=== PATIENT | male | born 1980 | race Caucasian/White ===

== ENCOUNTER 2022-05-30 20:37 | Emergency (ER) | payer OTHER ==
[~2022-05-30] VITALS: Ht 165.1 cm; Wt 101.8 kg
[2022-05-30 22:21] VITALS: BP 135/72
[2022-05-30] MEDS ORDERED: AMOX500C2 PO (23:18)
[2022-05-30] MEDS ORDERED: IBUP-2070 PO (23:18)
[2022-05-30] MEDS ORDERED: AMOXICILLIN TRIHYDRATE 250 MG CAPSULE PO ONE (23:30)
[2022-05-30] MEDS ORDERED: TraMADol HCL 50 MG TABLET PO ONE (23:30)
== END 2022-05-30 23:32 | disposition home or self-care (01) ==
LOC: EMS 20:50
DX: T16.1XXA Foreign body in right ear, initial encounter (principal); F41.9 Anxiety disorder, unspecified; I10 Essential (primary) hypertension; M54.30 Sciatica, unspecified side; G62.9 Polyneuropathy, unspecified; F14.90 Cocaine use, unspecified, uncomplicated; F11.90 Opioid use, unspecified, uncomplicated; F19.90 Other psychoactive substance use, unspecified, uncomplicated; W22.8XXA Striking against or struck by other objects, initial encounter; Y93.89 Activity, other specified; Y92.89 Other specified places as the place of occurrence of the external cause; Y99.8 Other external cause status
CPT/HCPCS: 99283

== ENCOUNTER 2022-11-19 04:11 | Inpatient (IN) | payer OTHER ==
[~2022-11-19] VITALS: Ht 167.6 cm; Wt 90.2 kg
[~2022-11-19 04:11] MED LIST: AMOX500C2 PO; IBUP-1492 PO
[2022-11-19 08:05] LABS: BASOPHILS % (AUTO) 0.1 % (0.0-2.0); EOSINOPHILS % (AUTO) 0.5 % (1.0-6.0); HEMATOCRIT 35.6 % (41-53); HEMOGLOBIN 12.5 g/dL (13.5-17.5); LYMPHOCYTES # (AUTO) 1.4 K/uL (1.0-4.8); LYMPHOCYTES % (AUTO) 11.3 % (22.0-44.0); MEAN CORPUSCULAR HEMOGLOBIN 31.8 pg (26.0-34.0); MEAN CORPUSCULAR HGB CONC 35.2 G/dL (31.0-37.0); MEAN CORPUSCULAR VOLUME 90 fL (80-100); MONOCYTES % (AUTO) 7.9 % (2.0-9.0); NEUTROPHILS # (AUTO) 10.1 K/uL (1.8-7.7); NEUTROPHILS % (AUTO) 80.2 % (40.0-70.0); PLATELET COUNT (AUTO) 210 K/uL (150-450); RED BLOOD CELL COUNT(AUTO) 3.95 MIL/uL (4.50-5.90); RED CELL DISTRIBUTION WIDTH 13.1 % (11.5-14.5)
[2022-11-19 08:10] LABS: ANION GAP 6 mmol/L (8-16); CARBON DIOXIDE 29 mmol/L (22-29); CHLORIDE 98 mmol/L (98-107); CREATININE 0.78 mg/dL (0.60-1.30); GLOMERULAR FILTR. RATE CALC > 60 mL/min (>60); GLUCOSE,RANDOM 113 mg/dL (70-110); POTASSIUM 3.4 mmol/L (3.5-5.1); SODIUM SERUM 133 mmol/L (136-145); UREA NITROGEN, BLOOD 20 mg/dL (7-18)
[2022-11-19 08:18] LABS: B-TYPE NATRIURETIC PEPTIDE 6 pg/mL (0-100)
[2022-11-19 08:23] LABS: INR 1.1 (0.9-1.1); PROTHROMBIN TIME 11.5 SEC (9.4-11.6)
[2022-11-19 08:36] LABS: ALANINE AMINOTRANSFERASE 47 U/L (12-78); ALBUMIN 3.3 g/dL (3.4-5.0); ALKALINE PHOSPHATASE 62 U/L (46-116); ASPARTATE AMINOTRANSFERASE 36 U/L (15-37); BILIRUBIN,TOTAL 0.6 mg/dL (0.1-1.0); CREATINE KINASE, TOTAL ONLY 360 U/L (39-308); TOTAL PROTEIN, SERUM 7.4 g/dL (6.4-8.2)
[2022-11-19 09:28] LABS: COVID AG,FIA SOURCE NASAL SWAB
[2022-11-19] MEDS ORDERED: ONDANSETRON HCL 4 MG/2 ML VIAL IVP PRN (10:00)
[2022-11-19] MEDS: OxyCODONE HCL/ACETAMINOPHEN 5-325 MG TABLET PO PRN ×3 (10:20→23:47)
[2022-11-19 15:14] VITALS: BP 155/96
[2022-11-19 17:14] LABS: APPEARANCE,URINE CLEAR (CLEAR); BILIRUBIN,URINE NEGATIVE (NEGATIVE); GLUCOSE, URINE (UA) NEGATIVE (NEGATIVE); LEUKOCYTE ESTERASE ,URINE NEGATIVE (NEGATIVE); NITRATE,URINE NEGATIVE (NEGATIVE); OCCULT BLOOD,URINE NEGATIVE (NEGATIVE); PROTEIN,URINE 30-70 mg/dL (NEGATIVE); SPECIFIC GRAVITIY, URINE 1.032 (1.003-1.030); UROBILINOGEN,URINE <=1.0 mg/dL (<=1.0)
[2022-11-19] MEDS: HEPARIN SODIUM,PORCINE 5,000 UNITS/ML VIAL SQ SCH ×2 (18:23→23:43)
[2022-11-19 19:36] VITALS: BP 136/80
[2022-11-19] MEDS: DOCUSATE SODIUM 100 MG CAPSULE PO SCH (21:00)
[2022-11-20] VITALS (7 sets, daily range): BP systolic 113–175; BP diastolic 68–103
[2022-11-20] MEDS: ACETAMINOPHEN 325 MG TABLET PO PRN (05:06)
[2022-11-20] MEDS: OxyCODONE HCL/ACETAMINOPHEN 5-325 MG TABLET PO PRN ×3 (06:42→21:33)
[2022-11-20] MEDS: DOCUSATE SODIUM 100 MG CAPSULE PO SCH ×2 (08:33→21:05)
[2022-11-20] MEDS: FAMOTIDINE 20 MG TABLET PO SCH (08:33)
[2022-11-20] MEDS: HEPARIN SODIUM,PORCINE 5,000 UNITS/ML VIAL SQ SCH ×2 (08:33→17:47)
[2022-11-20 10:53] LABS: AMPHET/METH SCREEN,URINE POSITIVE (NEGATIVE); BARBITURATE SCREEN, URINE NEGATIVE (NEGATIVE); BENZODIAZEPINES SCREEN,URINE NEGATIVE (NEGATIVE); CANNABINOID SCREEN,URINE NEGATIVE (NEGATIVE); COCAINE SCREEN,URINE NEGATIVE (NEGATIVE); METHADONE SCREEN, URINE NEGATIVE (NEGATIVE); OPIATE SCREEN,URINE NEGATIVE (NEGATIVE); PHENCYCLIDINE SCREEN,URINE NEGATIVE (NEGATIVE)
[2022-11-20] MEDS: LORazepam 2 MG/ML VIAL IVP PRN ×2 (14:56→21:05)
[2022-11-20] MEDS ORDERED: LABETALOL HCL 5 MG/ML 20 ML VIAL IVP PRN (20:00)
[2022-11-20 20:46] LABS: GLUCOMETER DEV NAME(LOC) 5S.2C; GLUCOSE,POINT OF CARE 112 MG/DL (70-110)
[2022-11-20] MEDS ORDERED: DILTIAZEM HCL 30 MG TABLET PO ONE (22:00)
[2022-11-20] MEDS ORDERED: RINGERS SOLUTION,LACTATED 1,000 ML IV SCH (22:30)
[2022-11-20] MEDS ORDERED: CefTRIAXone 1 GM/DEXTROSE 50 ML IV SCH (23:00)
[2022-11-20 23:01] LABS: ABG BASE EXCESS 2.6 mmol/L (-2.0-3.0); ABG CARBOXYHEMOGLOBIN 0.8 % (0.0-1.5); ABG HCO3 26.2 mmol/L (22.0-26.0); ABG METHEMOGLOBIN 0.2 % (0.0-1.5); ABG OXYGEN CONTENT 16.8 mL/dL (15.0-23.0); ABG OXYHEMOGLOBIN 80.8 % (94.0-100.0); ABG PCO2 41 mmHg (35-45); ABG PH 7.438 (7.35-7.450); ABG TOTAL HEMOGLOBIN 14.8 G/dL (12.0-18.0); PO2, ARTERIAL BG 43.3 mmHg (88.0-96.0); SOURCE, BLOOD GAS ARTERIAL; TEMPERATURE, FAHRENHEIT, BG 98.6 FAHREN (96.0-98.6)
[2022-11-20 23:05] LABS: ABG OXYGEN SATURATION 81.6 % (95.0-98.0); SITE, BLOOD GAS RT RADIAL
[2022-11-20 23:13] LABS: BAND NEUTROPHILS % (MANUAL) 0 % (0-5)
[2022-11-20 23:15] LABS: HEMATOCRIT 39.8 % (41-53); HEMOGLOBIN 13.9 g/dL (13.5-17.5); MEAN CORPUSCULAR HEMOGLOBIN 31.6 pg (26.0-34.0); MEAN CORPUSCULAR HGB CONC 34.9 G/dL (31.0-37.0); MEAN CORPUSCULAR VOLUME 91 fL (80-100); PLATELET COUNT (AUTO) 274 K/uL (150-450); RED BLOOD CELL COUNT(AUTO) 4.39 MIL/uL (4.50-5.90); RED CELL DISTRIBUTION WIDTH 12.7 % (11.5-14.5)
[2022-11-20 23:27] LABS: ANION GAP 11 mmol/L (8-16); CARBON DIOXIDE 28 mmol/L (22-29); CHLORIDE 99 mmol/L (98-107); CREATININE 0.76 mg/dL (0.60-1.30); GLOMERULAR FILTR. RATE CALC > 60 mL/min (>60); GLUCOSE,RANDOM 136 mg/dL (70-110); SODIUM SERUM 138 mmol/L (136-145); UREA NITROGEN, BLOOD 17 mg/dL (7-18)
[2022-11-20 23:33] LABS: ALANINE AMINOTRANSFERASE 82 U/L (12-78); ALBUMIN 2.9 g/dL (3.4-5.0); ALKALINE PHOSPHATASE 76 U/L (46-116); ASPARTATE AMINOTRANSFERASE 53 U/L (15-37); BILIRUBIN,TOTAL 0.8 mg/dL (0.1-1.0); TOTAL PROTEIN, SERUM 7.9 g/dL (6.4-8.2)
[2022-11-20 23:49] LABS: LYMPHOCYTES % (MANUAL) 4 % (22-44); MONOCYTES % (MANUAL) 6 % (2-9); SEGMENTED NEUTROPHILS % 90 % (40-70)
[2022-11-21] MEDS ORDERED: AZITHROMYCIN 500 MG/NS 250 ML IV SCH
[2022-11-21] MEDS: HEPARIN SODIUM,PORCINE 5,000 UNITS/ML VIAL SQ SCH ×4 (00:08→23:24)
[2022-11-21 00:47] LABS: ABG BASE EXCESS 2.1 mmol/L (-2.0-3.0); ABG CARBOXYHEMOGLOBIN 0.9 % (0.0-1.5); ABG HCO3 25.6 mmol/L (22.0-26.0); ABG METHEMOGLOBIN 0.3 % (0.0-1.5); ABG OXYGEN CONTENT 16.2 mL/dL (15.0-23.0); ABG OXYHEMOGLOBIN 81.3 % (94.0-100.0); ABG PCO2 43 mmHg (35-45); ABG PH 7.409 (7.35-7.450); ABG TOTAL HEMOGLOBIN 14.2 G/dL (12.0-18.0); PO2, ARTERIAL BG 44.9 mmHg (88.0-96.0); SOURCE, BLOOD GAS ARTERIAL; TEMPERATURE, FAHRENHEIT, BG 98.6 FAHREN (96.0-98.6)
[2022-11-21 00:49] LABS: ABG OXYGEN SATURATION 82.3 % (95.0-98.0); O2 DEVICE,BLOOD GAS BIPAP (ROOM AIR); SITE, BLOOD GAS RT RADIAL
[2022-11-21] MEDS: LORazepam 2 MG/ML VIAL IVP PRN ×3 (01:39→17:49)
[2022-11-21 02:00] VITALS: BP 140/82
[2022-11-21] MEDS ORDERED: DEXMEDETOMIDINE HCL 400 MCG in SODIUM CHLORIDE 0.9% 96 ML IV PRN (02:15)
[2022-11-21] MEDS ORDERED: FUROSEMIDE 20 MG/2 ML VIAL IVP ONE (03:15)
[2022-11-21 04:47] VITALS: BP 115/73
[2022-11-21 07:34] VITALS: BP 123/67
[2022-11-21 08:48] LABS: AMPHET/METH SCREEN,URINE POSITIVE (NEGATIVE); BARBITURATE SCREEN, URINE NEGATIVE (NEGATIVE); BENZODIAZEPINES SCREEN,URINE NEGATIVE (NEGATIVE); CANNABINOID SCREEN,URINE NEGATIVE (NEGATIVE); COCAINE SCREEN,URINE NEGATIVE (NEGATIVE); METHADONE SCREEN, URINE NEGATIVE (NEGATIVE); OPIATE SCREEN,URINE POSITIVE (NEGATIVE); PHENCYCLIDINE SCREEN,URINE NEGATIVE (NEGATIVE)
[2022-11-21] MEDS: DOCUSATE SODIUM 100 MG CAPSULE PO SCH ×2 (09:00→21:00)
[2022-11-21] MEDS ORDERED: VANCOMYCIN HCL 1.5 GM in DEXTROSE 5%-WATER 250 ML IV ONE (09:00)
[2022-11-21 09:34] LABS: BASOPHILS % (AUTO) 0.1 % (0.0-2.0); EOSINOPHILS % (AUTO) 0 % (1.0-6.0); HEMATOCRIT 37.4 % (41-53); LYMPHOCYTES # (AUTO) 1.3 K/uL (1.0-4.8); MEAN CORPUSCULAR HEMOGLOBIN 31.4 pg (26.0-34.0); MEAN CORPUSCULAR HGB CONC 34.7 G/dL (31.0-37.0); MEAN CORPUSCULAR VOLUME 91 fL (80-100); MONOCYTES # (AUTO) 2.1 K/uL (0.1-1.0); MONOCYTES % (AUTO) 7.7 % (2.0-9.0); NEUTROPHILS # (AUTO) 23.4 K/uL (1.8-7.7); PLATELET COUNT (AUTO) 279 K/uL (150-450); RED BLOOD CELL COUNT(AUTO) 4.13 MIL/uL (4.50-5.90); RED CELL DISTRIBUTION WIDTH 12.7 % (11.5-14.5)
[2022-11-21 09:44] LABS: NEUTROPHILS % (AUTO) 87.2 % (40.0-70.0)
[2022-11-21 10:01] LABS: ALANINE AMINOTRANSFERASE 112 U/L (12-78); ALBUMIN 2.5 g/dL (3.4-5.0); ALKALINE PHOSPHATASE 71 U/L (46-116); ANION GAP 9 mmol/L (8-16); ASPARTATE AMINOTRANSFERASE 84 U/L (15-37); BILIRUBIN,TOTAL 0.7 mg/dL (0.1-1.0); CALCIUM, TOTAL 8.5 mg/dL (8.8-10.5); CARBON DIOXIDE 30 mmol/L (22-29); CHLORIDE 99 mmol/L (98-107); GLOMERULAR FILTR. RATE CALC > 60 mL/min (>60); GLUCOSE,RANDOM 134 mg/dL (70-110); POTASSIUM 3.9 mmol/L (3.5-5.1); SODIUM SERUM 138 mmol/L (136-145); TOTAL PROTEIN, SERUM 7.7 g/dL (6.4-8.2); UREA NITROGEN, BLOOD 17 mg/dL (7-18)
[2022-11-21] MEDS: FAMOTIDINE 20 MG TABLET PO SCH (10:38)
[2022-11-21 11:48] VITALS: BP 130/72
[2022-11-21] MEDS: PIPERACILLIN/TAZO 3.375 GM/D5W 50 ML IV SCH ×3 (13:42→22:02)
[2022-11-21 15:56] VITALS: BP 125/73
[2022-11-21] MEDS: VANCOMYCIN HCL 1.25 GM in DEXTROSE 5%-WATER 250 ML IV SCH (16:56)
[2022-11-21] MEDS ORDERED: SODIUM CHLORIDE 0.9% 100 ML ONE ×2 (17:31→22:55)
[2022-11-21] MEDS ORDERED: IOHEXOL 350 MG/ML 100 ML VIAL ONE ×2 (17:31→22:54)
[2022-11-21 21:44] VITALS: BP 128/76
[2022-11-21] MEDS: OxyCODONE HCL/ACETAMINOPHEN 5-325 MG TABLET PO PRN (23:24)
[2022-11-22] MEDS: VANCOMYCIN HCL 1.25 GM in DEXTROSE 5%-WATER 250 ML IV SCH ×3 (00:09→17:10)
[2022-11-22 00:21] VITALS: BP 124/70
[2022-11-22] MEDS: PIPERACILLIN/TAZO 3.375 GM/D5W 50 ML IV SCH ×4 (04:13→23:11)
[2022-11-22] MEDS: OxyCODONE HCL/ACETAMINOPHEN 5-325 MG TABLET PO PRN ×3 (04:15→20:15)
[2022-11-22 05:39] VITALS: BP 124/68
[2022-11-22] MEDS: FAMOTIDINE 20 MG TABLET PO SCH (08:45)
[2022-11-22] MEDS: DOCUSATE SODIUM 100 MG CAPSULE PO SCH ×2 (08:45→20:15)
[2022-11-22] MEDS: HEPARIN SODIUM,PORCINE 5,000 UNITS/ML VIAL SQ SCH ×3 (08:46→23:35)
[2022-11-22 09:00] VITALS: BP 117/51
[2022-11-22 10:51] LABS: ANION GAP 6 mmol/L (8-16); CALCIUM, TOTAL 8.7 mg/dL (8.8-10.5); CARBON DIOXIDE 28 mmol/L (22-29); CHLORIDE 99 mmol/L (98-107); CREATININE 0.75 mg/dL (0.60-1.30); GLOMERULAR FILTR. RATE CALC > 60 mL/min (>60); GLUCOSE,RANDOM 135 mg/dL (70-110); POTASSIUM 3.8 mmol/L (3.5-5.1); SODIUM SERUM 133 mmol/L (136-145); UREA NITROGEN, BLOOD 19 mg/dL (7-18)
[2022-11-22] MEDS: LORazepam 2 MG/ML VIAL IVP PRN ×2 (12:26→20:15)
[2022-11-22 12:29] VITALS: BP 115/76
[2022-11-22] MEDS: IPRATROPIUM BROMIDE 0.5 MG/2.5 ML NEB SOLUTION NEB SCH ×3 (15:32→22:54)
[2022-11-22] MEDS: ALBUTEROL SULFATE 2.5 MG/0.5 ML NEB SOLUTION NEB SCH ×3 (15:32→22:54)
[2022-11-22] MEDS: ACETYLCYSTEINE 10% 100 MG/ML 4 ML NEB SOLUTION NEB SCH ×3 (15:46→22:54)
[2022-11-22 17:18] VITALS: BP 135/75
[2022-11-22 19:45] VITALS: BP 130/73
[2022-11-22] MEDS: ACETAMINOPHEN 325 MG TABLET PO PRN (23:36)
[2022-11-23 00:08] VITALS: BP 141/75
[2022-11-23] MEDS: VANCOMYCIN HCL 1.25 GM in DEXTROSE 5%-WATER 250 ML IV SCH (00:15)
[2022-11-23] MEDS: ACETYLCYSTEINE 10% 100 MG/ML 4 ML NEB SOLUTION NEB SCH ×6 (02:34→22:36)
[2022-11-23] MEDS: ALBUTEROL SULFATE 2.5 MG/0.5 ML NEB SOLUTION NEB PRN (02:35)
[2022-11-23] MEDS: PIPERACILLIN/TAZO 3.375 GM/D5W 50 ML IV SCH ×4 (03:31→23:45)
[2022-11-23] MEDS: OxyCODONE HCL/ACETAMINOPHEN 5-325 MG TABLET PO PRN ×4 (03:42→20:41)
[2022-11-23 03:46] VITALS: BP 101/57
[2022-11-23 07:26] LABS: BASOPHILS % (AUTO) 0.1 % (0.0-2.0); EOSINOPHILS % (AUTO) 0.2 % (1.0-6.0); HEMATOCRIT 35.8 % (41-53); HEMOGLOBIN 12.3 g/dL (13.5-17.5); LYMPHOCYTES # (AUTO) 1.1 K/uL (1.0-4.8); LYMPHOCYTES % (AUTO) 6.1 % (22.0-44.0); MEAN CORPUSCULAR HGB CONC 34.2 G/dL (31.0-37.0); MEAN CORPUSCULAR VOLUME 91 fL (80-100); MONOCYTES # (AUTO) 1.4 K/uL (0.1-1.0); MONOCYTES % (AUTO) 7.3 % (2.0-9.0); NEUTROPHILS # (AUTO) 16.4 K/uL (1.8-7.7); PLATELET COUNT (AUTO) 286 K/uL (150-450); RED BLOOD CELL COUNT(AUTO) 3.96 MIL/uL (4.50-5.90); RED CELL DISTRIBUTION WIDTH 12.5 % (11.5-14.5)
[2022-11-23 07:27] LABS: NEUTROPHILS % (AUTO) 86.3 % (40.0-70.0)
[2022-11-23 07:32] LABS: ANION GAP 9 mmol/L (8-16); CALCIUM, TOTAL 8.3 mg/dL (8.8-10.5); CARBON DIOXIDE 27 mmol/L (22-29); CHLORIDE 98 mmol/L (98-107); CREATININE 0.76 mg/dL (0.60-1.30); GLOMERULAR FILTR. RATE CALC > 60 mL/min (>60); GLUCOSE,RANDOM 128 mg/dL (70-110); POTASSIUM 3.5 mmol/L (3.5-5.1); SODIUM SERUM 134 mmol/L (136-145); UREA NITROGEN, BLOOD 12 mg/dL (7-18); VANCOMYCIN,RANDOM 13.4 mcg/mL (25.0-50.0)
[2022-11-23] MEDS: ALBUTEROL SULFATE 2.5 MG/0.5 ML NEB SOLUTION NEB SCH ×5 (07:33→22:36)
[2022-11-23] MEDS: IPRATROPIUM BROMIDE 0.5 MG/2.5 ML NEB SOLUTION NEB SCH ×5 (07:33→22:36)
[2022-11-23 07:54] VITALS: BP 141/91
[2022-11-23] MEDS: HEPARIN SODIUM,PORCINE 5,000 UNITS/ML VIAL SQ SCH (08:18)
[2022-11-23] MEDS: VANCOMYCIN HCL 1.5 GM in DEXTROSE 5%-WATER 250 ML IV SCH ×2 (08:18→15:34)
[2022-11-23] MEDS: FAMOTIDINE 20 MG TABLET PO SCH (08:18)
[2022-11-23] MEDS: DOCUSATE SODIUM 100 MG CAPSULE PO SCH ×2 (08:18→20:41)
[2022-11-23] MEDS: LORazepam 2 MG/ML VIAL IVP PRN (08:39)
[2022-11-23 11:53] VITALS: BP 129/72
[2022-11-23 17:08] VITALS: BP 148/86
[2022-11-23 20:41] VITALS: BP 172/77
[2022-11-23] MEDS: APIXABAN 5 MG TABLET PO SCH (20:41)
[2022-11-23] MEDS: ACETAMINOPHEN 325 MG TABLET PO PRN (20:47)
[2022-11-23] MEDS ORDERED: LORazepam 1 MG TABLET PO ONE (23:15)
[2022-11-24] MEDS: VANCOMYCIN HCL 1.5 GM in DEXTROSE 5%-WATER 250 ML IV SCH ×4 (00:29→23:25)
[2022-11-24 00:54] VITALS: BP 138/80
[2022-11-24] MEDS: ACETYLCYSTEINE 10% 100 MG/ML 4 ML NEB SOLUTION NEB SCH ×3 (02:48→12:44)
[2022-11-24] MEDS: ALBUTEROL SULFATE 2.5 MG/0.5 ML NEB SOLUTION NEB PRN (02:48)
[2022-11-24] MEDS: OxyCODONE HCL/ACETAMINOPHEN 5-325 MG TABLET PO PRN ×2 (03:12→07:08)
[2022-11-24] MEDS: PIPERACILLIN/TAZO 3.375 GM/D5W 50 ML IV SCH ×4 (03:54→22:24)
[2022-11-24] MEDS: LORazepam 2 MG/ML VIAL IVP PRN ×2 (03:55→08:32)
[2022-11-24 05:49] VITALS: BP 135/75
[2022-11-24] MEDS ORDERED: PERFLUTREN PROTEIN-A MICROSPHERES 0.22 MG/ML 3 ML VIAL IVP ONE (07:30)
[2022-11-24 07:39] LABS: ANION GAP 10 mmol/L (8-16); CALCIUM, TOTAL 8.4 mg/dL (8.8-10.5); CARBON DIOXIDE 25 mmol/L (22-29); CHLORIDE 99 mmol/L (98-107); CREATININE 0.79 mg/dL (0.60-1.30); GLOMERULAR FILTR. RATE CALC > 60 mL/min (>60); GLUCOSE,RANDOM 113 mg/dL (70-110); POTASSIUM 4.1 mmol/L (3.5-5.1); SODIUM SERUM 134 mmol/L (136-145); UREA NITROGEN, BLOOD 10 mg/dL (7-18)
[2022-11-24] MEDS: DOCUSATE SODIUM 100 MG CAPSULE PO SCH ×2 (08:24→20:04)
[2022-11-24] MEDS: APIXABAN 5 MG TABLET PO SCH ×2 (08:24→20:04)
[2022-11-24] MEDS: FAMOTIDINE 20 MG TABLET PO SCH (08:24)
[2022-11-24] MEDS: ACETAMINOPHEN 325 MG TABLET PO PRN ×4 (08:24→23:16)
[2022-11-24 08:29] VITALS: BP 117/65
[2022-11-24] MEDS: ALBUTEROL SULFATE 2.5 MG/0.5 ML NEB SOLUTION NEB SCH ×5 (08:49→22:56)
[2022-11-24] MEDS: IPRATROPIUM BROMIDE 0.5 MG/2.5 ML NEB SOLUTION NEB SCH ×5 (08:49→22:56)
[2022-11-24 12:00] VITALS: BP 119/62
[2022-11-24] MEDS: ACETYLCYSTEINE 20% 200 MG/ML 4 ML NEB SOLUTION NEB SCH ×3 (14:55→22:56)
[2022-11-24 16:33] VITALS: BP 127/54
[2022-11-24 20:22] VITALS: BP 112/50
[2022-11-25 00:10] VITALS: BP 117/57
[2022-11-25] MEDS: ALBUTEROL SULFATE 2.5 MG/0.5 ML NEB SOLUTION NEB PRN (02:50)
[2022-11-25] MEDS: ACETYLCYSTEINE 20% 200 MG/ML 4 ML NEB SOLUTION NEB SCH ×7 (02:51→23:00)
[2022-11-25] MEDS: PIPERACILLIN/TAZO 3.375 GM/D5W 50 ML IV SCH ×4 (04:32→21:55)
[2022-11-25 05:19] VITALS: BP 125/71
[2022-11-25] MEDS: ALBUTEROL SULFATE 2.5 MG/0.5 ML NEB SOLUTION NEB SCH ×5 (07:39→22:59)
[2022-11-25] MEDS: IPRATROPIUM BROMIDE 0.5 MG/2.5 ML NEB SOLUTION NEB SCH ×5 (07:39→22:59)
[2022-11-25] MEDS: FAMOTIDINE 20 MG TABLET PO SCH (08:23)
[2022-11-25] MEDS: APIXABAN 5 MG TABLET PO SCH ×2 (08:23→21:55)
[2022-11-25] MEDS: DOCUSATE SODIUM 100 MG CAPSULE PO SCH ×2 (08:23→21:55)
[2022-11-25] MEDS: ACETAMINOPHEN 325 MG TABLET PO PRN ×2 (08:29→21:56)
[2022-11-25] MEDS: VANCOMYCIN HCL 1.5 GM in DEXTROSE 5%-WATER 250 ML IV SCH ×3 (08:30→23:31)
[2022-11-25 08:49] VITALS: BP 118/72
[2022-11-25 09:19] LABS: ANION GAP 7 mmol/L (8-16); CARBON DIOXIDE 26 mmol/L (22-29); CHLORIDE 97 mmol/L (98-107); CREATININE 0.87 mg/dL (0.60-1.30); GLOMERULAR FILTR. RATE CALC > 60 mL/min (>60); GLUCOSE,RANDOM 153 mg/dL (70-110); SODIUM SERUM 130 mmol/L (136-145); UREA NITROGEN, BLOOD 10 mg/dL (7-18)
[2022-11-25 09:20] LABS: BASOPHILS % (AUTO) 0.2 % (0.0-2.0); EOSINOPHILS % (AUTO) 0.3 % (1.0-6.0); HEMATOCRIT 35.1 % (41-53); HEMOGLOBIN 11.8 g/dL (13.5-17.5); LYMPHOCYTES # (AUTO) 1.4 K/uL (1.0-4.8); LYMPHOCYTES % (AUTO) 6.4 % (22.0-44.0); MEAN CORPUSCULAR HEMOGLOBIN 30.9 pg (26.0-34.0); MEAN CORPUSCULAR HGB CONC 33.5 G/dL (31.0-37.0); MEAN CORPUSCULAR VOLUME 92 fL (80-100); MONOCYTES # (AUTO) 1.4 K/uL (0.1-1.0); MONOCYTES % (AUTO) 6.5 % (2.0-9.0); NEUTROPHILS # (AUTO) 18.5 K/uL (1.8-7.7); PLATELET COUNT (AUTO) 302 K/uL (150-450); RED BLOOD CELL COUNT(AUTO) 3.81 MIL/uL (4.50-5.90); RED CELL DISTRIBUTION WIDTH 12.9 % (11.5-14.5)
[2022-11-25 09:24] LABS: NEUTROPHILS % (AUTO) 86.6 % (40.0-70.0)
[2022-11-25 11:24] VITALS: BP 116/71
[2022-11-25] MEDS: KETOROLAC TROMETHAMINE 15 MG/ML VIAL IVP PRN ×2 (12:08→18:23)
[2022-11-25 15:44] VITALS: BP 114/68
[2022-11-25] MEDS: AZITHROMYCIN 500 MG TABLET PO SCH (17:36)
[2022-11-25 20:12] VITALS: BP 122/66
[2022-11-26 00:11] VITALS: BP 106/65
[2022-11-26] MEDS: KETOROLAC TROMETHAMINE 15 MG/ML VIAL IVP PRN ×3 (01:29→20:24)
[2022-11-26] MEDS: PIPERACILLIN/TAZO 3.375 GM/D5W 50 ML IV SCH ×4 (03:32→21:10)
[2022-11-26] MEDS ORDERED: SODIUM CHLORIDE 0.9% 1,000 ML ONE (03:39)
[2022-11-26] MEDS: ACETYLCYSTEINE 20% 200 MG/ML 4 ML NEB SOLUTION NEB SCH ×6 (03:51→22:07)
[2022-11-26 06:04] VITALS: BP 117/64
[2022-11-26 06:54] LABS: ANION GAP 4 mmol/L (8-16); CALCIUM, TOTAL 8.3 mg/dL (8.8-10.5); CARBON DIOXIDE 29 mmol/L (22-29); CHLORIDE 100 mmol/L (98-107); GLOMERULAR FILTR. RATE CALC > 60 mL/min (>60); GLUCOSE,RANDOM 114 mg/dL (70-110); POTASSIUM 3.8 mmol/L (3.5-5.1); SODIUM SERUM 133 mmol/L (136-145); UREA NITROGEN, BLOOD 17 mg/dL (7-18)
[2022-11-26 07:14] LABS: VANCOMYCIN,RANDOM 22.4 mcg/mL (25.0-50.0)
[2022-11-26] MEDS: IPRATROPIUM BROMIDE 0.5 MG/2.5 ML NEB SOLUTION NEB SCH ×5 (07:32→22:07)
[2022-11-26] MEDS: ALBUTEROL SULFATE 2.5 MG/0.5 ML NEB SOLUTION NEB SCH ×5 (07:33→22:07)
[2022-11-26 07:37] VITALS: BP 125/73
[2022-11-26] MEDS: VANCOMYCIN HCL 1.5 GM in DEXTROSE 5%-WATER 250 ML IV SCH (08:23)
[2022-11-26] MEDS: DOCUSATE SODIUM 100 MG CAPSULE PO SCH ×2 (08:23→20:34)
[2022-11-26] MEDS: FAMOTIDINE 20 MG TABLET PO SCH (08:23)
[2022-11-26] MEDS: AZITHROMYCIN 500 MG TABLET PO SCH (08:23)
[2022-11-26] MEDS: APIXABAN 5 MG TABLET PO SCH ×2 (08:24→20:24)
[2022-11-26 13:43] VITALS: BP 120/70
[2022-11-26 15:40] VITALS: BP 110/70
[2022-11-26] MEDS: ACETAMINOPHEN 325 MG TABLET PO PRN (15:40)
[2022-11-26] MEDS: VANCOMYCIN HCL 1.25 GM in DEXTROSE 5%-WATER 250 ML IV SCH ×2 (16:55→23:10)
[2022-11-26 17:12] LABS: BASOPHILS % (AUTO) 0.1 % (0.0-2.0); EOSINOPHILS % (AUTO) 0.3 % (1.0-6.0); HEMATOCRIT 50.9 % (41-53); HEMOGLOBIN 17.1 g/dL (13.5-17.5); LYMPHOCYTES # (AUTO) 0.4 K/uL (1.0-4.8); LYMPHOCYTES % (AUTO) 6.5 % (22.0-44.0); MEAN CORPUSCULAR HEMOGLOBIN 30.9 pg (26.0-34.0); MEAN CORPUSCULAR HGB CONC 33.5 G/dL (31.0-37.0); MEAN CORPUSCULAR VOLUME 92 fL (80-100); MONOCYTES # (AUTO) 0.5 K/uL (0.1-1.0); MONOCYTES % (AUTO) 7.4 % (2.0-9.0); NEUTROPHILS # (AUTO) 5.5 K/uL (1.8-7.7); NEUTROPHILS % (AUTO) 85.7 % (40.0-70.0); PLATELET COUNT (AUTO) 133 K/uL (150-450); RED BLOOD CELL COUNT(AUTO) 5.52 MIL/uL (4.50-5.90); RED CELL DISTRIBUTION WIDTH 13.3 % (11.5-14.5)
[2022-11-26 17:19] LABS: CALCIUM, TOTAL 8.3 mg/dL (8.8-10.5); CREATININE 1.56 mg/dL (0.60-1.30); POTASSIUM 3.9 mmol/L (3.5-5.1)
[2022-11-26 17:25] LABS: ALBUMIN 1.8 g/dL (3.4-5.0); BILIRUBIN,TOTAL 0.4 mg/dL (0.1-1.0); TOTAL PROTEIN, SERUM 7.4 g/dL (6.4-8.2)
[2022-11-26] MEDS: ZOLPIDEM TARTRATE 10 MG TABLET PO PRN (20:24)
[2022-11-26 20:36] VITALS: BP 122/69
[2022-11-27] VITALS: BP 119/62
[2022-11-27] MEDS: ACETYLCYSTEINE 20% 200 MG/ML 4 ML NEB SOLUTION NEB SCH ×6 (02:19→22:02)
[2022-11-27] MEDS: PIPERACILLIN/TAZO 3.375 GM/D5W 50 ML IV SCH ×4 (03:19→22:29)
[2022-11-27 04:25] VITALS: BP 128/64
[2022-11-27 06:51] LABS: BASOPHILS % (AUTO) 0.3 % (0.0-2.0); EOSINOPHILS % (AUTO) 0.4 % (1.0-6.0); HEMATOCRIT 34.8 % (41-53); HEMOGLOBIN 11.6 g/dL (13.5-17.5); LYMPHOCYTES # (AUTO) 1.5 K/uL (1.0-4.8); LYMPHOCYTES % (AUTO) 10.1 % (22.0-44.0); MEAN CORPUSCULAR HEMOGLOBIN 30.9 pg (26.0-34.0); MEAN CORPUSCULAR HGB CONC 33.4 G/dL (31.0-37.0); MEAN CORPUSCULAR VOLUME 93 fL (80-100); MONOCYTES # (AUTO) 1.1 K/uL (0.1-1.0); MONOCYTES % (AUTO) 7.7 % (2.0-9.0); NEUTROPHILS # (AUTO) 11.7 K/uL (1.8-7.7); NEUTROPHILS % (AUTO) 81.5 % (40.0-70.0); PLATELET COUNT (AUTO) 335 K/uL (150-450); RED BLOOD CELL COUNT(AUTO) 3.76 MIL/uL (4.50-5.90); RED CELL DISTRIBUTION WIDTH 12.7 % (11.5-14.5)
[2022-11-27 07:10] LABS: ALBUMIN 1.8 g/dL (3.4-5.0); BILIRUBIN,TOTAL 0.6 mg/dL (0.1-1.0); CALCIUM, TOTAL 8.3 mg/dL (8.8-10.5); CREATININE 1.82 mg/dL (0.60-1.30); POTASSIUM 3.8 mmol/L (3.5-5.1); TOTAL PROTEIN, SERUM 7.8 g/dL (6.4-8.2)
[2022-11-27 07:50] VITALS: BP 115/64
[2022-11-27] MEDS: IPRATROPIUM BROMIDE 0.5 MG/2.5 ML NEB SOLUTION NEB SCH ×5 (07:55→22:03)
[2022-11-27] MEDS: ALBUTEROL SULFATE 2.5 MG/0.5 ML NEB SOLUTION NEB SCH ×5 (07:55→22:03)
[2022-11-27] MEDS: APIXABAN 5 MG TABLET PO SCH ×2 (09:00→21:17)
[2022-11-27] MEDS: DOCUSATE SODIUM 100 MG CAPSULE PO SCH ×2 (09:00→20:14)
[2022-11-27] MEDS: FAMOTIDINE 20 MG TABLET PO SCH (09:46)
[2022-11-27] MEDS: AZITHROMYCIN 500 MG TABLET PO SCH (09:47)
[2022-11-27] MEDS: KETOROLAC TROMETHAMINE 15 MG/ML VIAL IVP PRN ×2 (09:55→20:07)
[2022-11-27 14:37] VITALS: BP 127/64
[2022-11-27 18:06] LABS: LEGIONELLA PNEUMO AG URINE Negative (Negative); S PNEUMO SOURCE Urine; STREP PNEUMONIAE AG URINE Negative (Negative)
[2022-11-27] MEDS ORDERED: VANCOMYCIN HCL 500 MG in DEXTROSE 5%-WATER 100 ML IV SCH (20:00)
[2022-11-27 20:05] VITALS: BP 135/77
[2022-11-27] MEDS: VANCOMYCIN HCL 750 MG in DEXTROSE 5%-WATER 250 ML IV SCH (20:06)
[2022-11-27] MEDS: ZOLPIDEM TARTRATE 10 MG TABLET PO PRN (20:06)
[2022-11-27] MEDS: SODIUM CHLORIDE 0.9% 1,000 ML IV SCH (22:17)
[2022-11-28] MEDS: ACETYLCYSTEINE 20% 200 MG/ML 4 ML NEB SOLUTION NEB SCH ×6 (02:25→23:02)
[2022-11-28 04:05] VITALS: BP 129/68
[2022-11-28] MEDS: PIPERACILLIN/TAZO 3.375 GM/D5W 50 ML IV SCH ×4 (04:10→22:01)
[2022-11-28] MEDS: TraMADol HCL 50 MG TABLET PO PRN ×3 (06:16→19:55)
[2022-11-28] MEDS: IPRATROPIUM BROMIDE 0.5 MG/2.5 ML NEB SOLUTION NEB SCH ×5 (06:56→23:02)
[2022-11-28] MEDS: ALBUTEROL SULFATE 2.5 MG/0.5 ML NEB SOLUTION NEB SCH ×5 (06:56→23:02)
[2022-11-28 07:25] LABS: ALBUMIN 1.7 g/dL (3.4-5.0); BILIRUBIN,TOTAL 0.4 mg/dL (0.1-1.0); CALCIUM, TOTAL 8.1 mg/dL (8.8-10.5); CREATININE 2.09 mg/dL (0.60-1.30); POTASSIUM 4.2 mmol/L (3.5-5.1); TOTAL PROTEIN, SERUM 7.3 g/dL (6.4-8.2)
[2022-11-28 07:29] LABS: BASOPHILS % (AUTO) 0.1 % (0.0-2.0); EOSINOPHILS % (AUTO) 0.8 % (1.0-6.0); HEMATOCRIT 31.1 % (41-53); HEMOGLOBIN 10.7 g/dL (13.5-17.5); LYMPHOCYTES % (AUTO) 12.8 % (22.0-44.0); MEAN CORPUSCULAR HEMOGLOBIN 31.5 pg (26.0-34.0); MEAN CORPUSCULAR HGB CONC 34.4 G/dL (31.0-37.0); MEAN CORPUSCULAR VOLUME 92 fL (80-100); MONOCYTES % (AUTO) 8.6 % (2.0-9.0); NEUTROPHILS # (AUTO) 10.2 K/uL (1.8-7.7); NEUTROPHILS % (AUTO) 77.7 % (40.0-70.0); PLATELET COUNT (AUTO) 337 K/uL (150-450); RED CELL DISTRIBUTION WIDTH 12.7 % (11.5-14.5)
[2022-11-28 07:30] LABS: LYMPHOCYTES # (AUTO) 1.7 K/uL (1.0-4.8); MONOCYTES # (AUTO) 1.1 K/uL (0.1-1.0)
[2022-11-28] MEDS: FAMOTIDINE 20 MG TABLET PO SCH (08:27)
[2022-11-28] MEDS: APIXABAN 5 MG TABLET PO SCH ×2 (08:27→21:56)
[2022-11-28] MEDS: AZITHROMYCIN 500 MG TABLET PO SCH (08:27)
[2022-11-28] MEDS: VANCOMYCIN HCL 750 MG in DEXTROSE 5%-WATER 250 ML IV SCH ×2 (08:28→19:59)
[2022-11-28 08:35] VITALS: BP 126/77
[2022-11-28] MEDS: SODIUM CHLORIDE 0.9% 1,000 ML IV SCH ×3 (08:35→20:45)
[2022-11-28 15:16] VITALS: BP 124/71
[2022-11-28] MEDS: ACETAMINOPHEN 325 MG TABLET PO PRN (17:01)
[2022-11-28 20:04] VITALS: BP 119/72
[2022-11-28] MEDS: ZOLPIDEM TARTRATE 5 MG TABLET PO PRN (20:48)
[2022-11-29] MEDS: ACETAMINOPHEN 325 MG TABLET PO PRN ×3 (01:48→19:56)
[2022-11-29] MEDS: ACETYLCYSTEINE 20% 200 MG/ML 4 ML NEB SOLUTION NEB SCH ×6 (03:00→23:00)
[2022-11-29] MEDS: PIPERACILLIN/TAZO 3.375 GM/D5W 50 ML IV SCH ×4 (04:08→23:13)
[2022-11-29 04:13] VITALS: BP 131/77
[2022-11-29] MEDS: TraMADol HCL 50 MG TABLET PO PRN ×3 (04:15→18:21)
[2022-11-29 06:38] LABS: BASOPHILS % (AUTO) 0.4 % (0.0-2.0); EOSINOPHILS % (AUTO) 1.1 % (1.0-6.0); HEMATOCRIT 32.8 % (41-53); HEMOGLOBIN 11.2 g/dL (13.5-17.5); LYMPHOCYTES # (AUTO) 1.8 K/uL (1.0-4.8); LYMPHOCYTES % (AUTO) 12.9 % (22.0-44.0); MEAN CORPUSCULAR HEMOGLOBIN 31.7 pg (26.0-34.0); MEAN CORPUSCULAR HGB CONC 34.2 G/dL (31.0-37.0); MEAN CORPUSCULAR VOLUME 93 fL (80-100); MONOCYTES % (AUTO) 6.9 % (2.0-9.0); NEUTROPHILS % (AUTO) 78.7 % (40.0-70.0); PLATELET COUNT (AUTO) 389 K/uL (150-450); RED BLOOD CELL COUNT(AUTO) 3.53 MIL/uL (4.50-5.90); RED CELL DISTRIBUTION WIDTH 12.4 % (11.5-14.5)
[2022-11-29 06:55] LABS: CREATININE,URINE RANDOM 21.6 mg/dL (30.0-125.0)
[2022-11-29 07:00] LABS: ALBUMIN 1.8 g/dL (3.4-5.0); BILIRUBIN,TOTAL 0.5 mg/dL (0.1-1.0); CALCIUM, TOTAL 8.8 mg/dL (8.8-10.5); CREATININE 1.94 mg/dL (0.60-1.30); POTASSIUM 4.9 mmol/L (3.5-5.1); TOTAL PROTEIN, SERUM 7.7 g/dL (6.4-8.2)
[2022-11-29] MEDS: SODIUM CHLORIDE 0.9% 1,000 ML IV SCH ×3 (07:04→23:17)
[2022-11-29] MEDS: ALBUTEROL SULFATE 2.5 MG/0.5 ML NEB SOLUTION NEB SCH ×5 (07:35→23:00)
[2022-11-29] MEDS: IPRATROPIUM BROMIDE 0.5 MG/2.5 ML NEB SOLUTION NEB SCH ×5 (07:35→23:00)
[2022-11-29 08:01] VITALS: BP 120/73
[2022-11-29] MEDS: FAMOTIDINE 20 MG TABLET PO SCH (08:36)
[2022-11-29] MEDS: VANCOMYCIN HCL 750 MG in DEXTROSE 5%-WATER 250 ML IV SCH ×2 (08:36→19:51)
[2022-11-29] MEDS: AZITHROMYCIN 500 MG TABLET PO SCH (08:36)
[2022-11-29] MEDS: APIXABAN 5 MG TABLET PO SCH (08:37)
[2022-11-29 15:57] VITALS: BP 135/80
[2022-11-29] MEDS: ZOLPIDEM TARTRATE 5 MG TABLET PO PRN (19:52)
[2022-11-29 20:42] VITALS: BP 127/77
[2022-11-30] MEDS: ACETYLCYSTEINE 20% 200 MG/ML 4 ML NEB SOLUTION NEB SCH ×6 (03:00→23:00)
[2022-11-30] MEDS: PIPERACILLIN/TAZO 3.375 GM/D5W 50 ML IV SCH ×4 (04:44→22:25)
[2022-11-30] MEDS: TraMADol HCL 50 MG TABLET PO PRN ×3 (04:45→20:10)
[2022-11-30 06:03] LABS: BASOPHILS % (AUTO) 0.4 % (0.0-2.0); EOSINOPHILS % (AUTO) 1.5 % (1.0-6.0); HEMATOCRIT 34.4 % (41-53); HEMOGLOBIN 11.7 g/dL (13.5-17.5); LYMPHOCYTES # (AUTO) 1.8 K/uL (1.0-4.8); LYMPHOCYTES % (AUTO) 13.3 % (22.0-44.0); MEAN CORPUSCULAR HEMOGLOBIN 31.3 pg (26.0-34.0); MEAN CORPUSCULAR VOLUME 92 fL (80-100); MONOCYTES # (AUTO) 0.9 K/uL (0.1-1.0); MONOCYTES % (AUTO) 6.8 % (2.0-9.0); NEUTROPHILS # (AUTO) 10.8 K/uL (1.8-7.7); PLATELET COUNT (AUTO) 455 K/uL (150-450); RED BLOOD CELL COUNT(AUTO) 3.74 MIL/uL (4.50-5.90); RED CELL DISTRIBUTION WIDTH 12.6 % (11.5-14.5)
[2022-11-30 06:16] LABS: ALBUMIN 1.9 g/dL (3.4-5.0); BILIRUBIN,TOTAL 0.5 mg/dL (0.1-1.0); CALCIUM, TOTAL 8.9 mg/dL (8.8-10.5); CREATININE 1.83 mg/dL (0.60-1.30); POTASSIUM 4.8 mmol/L (3.5-5.1); TOTAL PROTEIN, SERUM 8.3 g/dL (6.4-8.2)
[2022-11-30 06:26] LABS: CREATININE 1.82 mg/dL (0.60-1.30); MAGNESIUM 2.1 mg/dL (1.80-2.40); PHOSPHORUS 4.9 mg/dL (2.5-4.9); POTASSIUM 4.8 mmol/L (3.5-5.1)
[2022-11-30 06:33] LABS: TOTAL PROTEIN, SERUM 8.4 g/dL (6.4-8.2)
[2022-11-30] MEDS: ALBUTEROL SULFATE 2.5 MG/0.5 ML NEB SOLUTION NEB SCH ×5 (07:22→23:00)
[2022-11-30] MEDS: IPRATROPIUM BROMIDE 0.5 MG/2.5 ML NEB SOLUTION NEB SCH ×5 (07:22→23:00)
[2022-11-30] MEDS: FAMOTIDINE 20 MG TABLET PO SCH (07:42)
[2022-11-30] MEDS: VANCOMYCIN HCL 750 MG in DEXTROSE 5%-WATER 250 ML IV SCH ×2 (07:43→20:10)
[2022-11-30 08:13] VITALS: BP 99/65
[2022-11-30] MEDS: SODIUM CHLORIDE 0.9% 1,000 ML IV SCH ×2 (11:28→22:26)
[2022-11-30 15:44] VITALS: BP 116/61
[2022-11-30] MEDS: ACETAMINOPHEN 325 MG TABLET PO PRN (18:09)
[2022-11-30] MEDS: ZOLPIDEM TARTRATE 5 MG TABLET PO PRN (20:11)
[2022-11-30 20:20] VITALS: BP 109/66
[2022-11-30] MEDS ORDERED: APIXABAN 5 MG TABLET PO SCH (21:00)
[2022-11-30] MEDS ORDERED: SODIUM CHLORIDE 0.9% 500 ML IV ONE (22:11)
[2022-12-01] MEDS: ACETYLCYSTEINE 20% 200 MG/ML 4 ML NEB SOLUTION NEB SCH ×7 (03:00→22:43)
[2022-12-01] MEDS: PIPERACILLIN/TAZO 3.375 GM/D5W 50 ML IV SCH ×4 (03:23→21:39)
[2022-12-01] MEDS: TraMADol HCL 50 MG TABLET PO PRN ×3 (05:17→19:58)
[2022-12-01] MEDS: IPRATROPIUM BROMIDE 0.5 MG/2.5 ML NEB SOLUTION NEB SCH ×6 (07:31→22:42)
[2022-12-01] MEDS: ALBUTEROL SULFATE 2.5 MG/0.5 ML NEB SOLUTION NEB SCH ×6 (07:32→22:43)
[2022-12-01 07:41] VITALS: BP 127/74
[2022-12-01] MEDS: VANCOMYCIN HCL 750 MG in DEXTROSE 5%-WATER 250 ML IV SCH ×2 (07:46→19:52)
[2022-12-01] MEDS: FAMOTIDINE 20 MG TABLET PO SCH (07:50)
[2022-12-01] MEDS: SODIUM CHLORIDE 0.9% 1,000 ML IV SCH ×2 (10:19→21:39)
[2022-12-01 10:51] LABS: BASOPHILS % (AUTO) 0.6 % (0.0-2.0); EOSINOPHILS % (AUTO) 1.5 % (1.0-6.0); HEMATOCRIT 35.6 % (41-53); LYMPHOCYTES # (AUTO) 1.6 K/uL (1.0-4.8); LYMPHOCYTES % (AUTO) 13.4 % (22.0-44.0); MEAN CORPUSCULAR HEMOGLOBIN 31.3 pg (26.0-34.0); MEAN CORPUSCULAR HGB CONC 33.6 G/dL (31.0-37.0); MEAN CORPUSCULAR VOLUME 93 fL (80-100); MONOCYTES # (AUTO) 0.4 K/uL (0.1-1.0); MONOCYTES % (AUTO) 3.6 % (2.0-9.0); NEUTROPHILS # (AUTO) 9.7 K/uL (1.8-7.7); NEUTROPHILS % (AUTO) 80.9 % (40.0-70.0); PLATELET COUNT (AUTO) 490 K/uL (150-450); RED BLOOD CELL COUNT(AUTO) 3.82 MIL/uL (4.50-5.90); RED CELL DISTRIBUTION WIDTH 12.9 % (11.5-14.5)
[2022-12-01 11:16] LABS: BILIRUBIN,TOTAL 0.3 mg/dL (0.1-1.0); CALCIUM, TOTAL 8.9 mg/dL (8.8-10.5); CREATININE 1.85 mg/dL (0.60-1.30); POTASSIUM 4.4 mmol/L (3.5-5.1); TOTAL PROTEIN, SERUM 8.5 g/dL (6.4-8.2); VANCOMYCIN,RANDOM 31.9 mcg/mL (25.0-50.0)
[2022-12-01 17:06] LABS: HEPATITIS C AB (EIA) Reactive (Non Reactive); HEPATITIS C RT-PCR,QNT 620000 IU/mL
[2022-12-01] MEDS: ACETAMINOPHEN 325 MG TABLET PO PRN (18:46)
[2022-12-01] MEDS: ZOLPIDEM TARTRATE 5 MG TABLET PO PRN (19:58)
[2022-12-01 20:04] VITALS: BP 108/68
[2022-12-02] MEDS: ACETYLCYSTEINE 20% 200 MG/ML 4 ML NEB SOLUTION NEB SCH ×6 (02:53→22:24)
[2022-12-02] MEDS: PIPERACILLIN/TAZO 3.375 GM/D5W 50 ML IV SCH ×4 (03:28→22:52)
[2022-12-02 04:43] VITALS: BP 101/60
[2022-12-02] MEDS: TraMADol HCL 50 MG TABLET PO PRN ×2 (04:44→11:28)
[2022-12-02 06:30] LABS: BASOPHILS % (AUTO) 0.6 % (0.0-2.0); EOSINOPHILS % (AUTO) 1.6 % (1.0-6.0); HEMATOCRIT 35.3 % (41-53); HEMOGLOBIN 11.8 g/dL (13.5-17.5); LYMPHOCYTES # (AUTO) 2.2 K/uL (1.0-4.8); LYMPHOCYTES % (AUTO) 18.4 % (22.0-44.0); MEAN CORPUSCULAR HEMOGLOBIN 31.1 pg (26.0-34.0); MEAN CORPUSCULAR HGB CONC 33.4 G/dL (31.0-37.0); MEAN CORPUSCULAR VOLUME 93 fL (80-100); MONOCYTES # (AUTO) 0.9 K/uL (0.1-1.0); MONOCYTES % (AUTO) 7.5 % (2.0-9.0); NEUTROPHILS # (AUTO) 8.5 K/uL (1.8-7.7); NEUTROPHILS % (AUTO) 71.9 % (40.0-70.0); PLATELET COUNT (AUTO) 496 K/uL (150-450); RED BLOOD CELL COUNT(AUTO) 3.78 MIL/uL (4.50-5.90); RED CELL DISTRIBUTION WIDTH 12.8 % (11.5-14.5)
[2022-12-02 07:09] LABS: ALBUMIN 2.1 g/dL (3.4-5.0); BILIRUBIN,TOTAL 0.3 mg/dL (0.1-1.0); CALCIUM, TOTAL 9.3 mg/dL (8.8-10.5); CREATININE 1.94 mg/dL (0.60-1.30); POTASSIUM 4.7 mmol/L (3.5-5.1); TOTAL PROTEIN, SERUM 8.6 g/dL (6.4-8.2)
[2022-12-02] MEDS: VANCOMYCIN HCL 750 MG in DEXTROSE 5%-WATER 250 ML IV SCH ×2 (08:06→20:59)
[2022-12-02] MEDS: FAMOTIDINE 20 MG TABLET PO SCH (08:07)
[2022-12-02] MEDS: SODIUM CHLORIDE 0.9% 1,000 ML IV SCH ×2 (08:17→17:39)
[2022-12-02 09:25] VITALS: BP 112/69
[2022-12-02] MEDS: ALBUTEROL SULFATE 2.5 MG/0.5 ML NEB SOLUTION NEB SCH ×5 (09:26→22:24)
[2022-12-02] MEDS: IPRATROPIUM BROMIDE 0.5 MG/2.5 ML NEB SOLUTION NEB SCH ×5 (09:26→22:24)
[2022-12-02 15:33] VITALS: BP 110/59
[2022-12-02] MEDS: ACETAMINOPHEN/CODEINE 300-30 MG TABLET PO PRN ×2 (17:30→22:57)
[2022-12-02 19:40] VITALS: BP 100/50
[2022-12-02] MEDS: ZOLPIDEM TARTRATE 5 MG TABLET PO PRN (20:59)
[2022-12-03] MEDS: ACETYLCYSTEINE 20% 200 MG/ML 4 ML NEB SOLUTION NEB SCH ×5 (03:00→19:58)
[2022-12-03] MEDS: PIPERACILLIN/TAZO 3.375 GM/D5W 50 ML IV SCH ×4 (03:55→22:17)
[2022-12-03] MEDS: SODIUM CHLORIDE 0.9% 1,000 ML IV SCH ×3 (03:59→23:39)
[2022-12-03 04:20] VITALS: BP 104/64
[2022-12-03] MEDS: ACETAMINOPHEN/CODEINE 300-30 MG TABLET PO PRN ×4 (05:12→20:34)
[2022-12-03 06:57] LABS: BASOPHILS % (AUTO) 0.7 % (0.0-2.0); EOSINOPHILS % (AUTO) 1.5 % (1.0-6.0); HEMATOCRIT 35.4 % (41-53); LYMPHOCYTES % (AUTO) 19.6 % (22.0-44.0); MEAN CORPUSCULAR HEMOGLOBIN 31.4 pg (26.0-34.0); MEAN CORPUSCULAR HGB CONC 33.8 G/dL (31.0-37.0); MEAN CORPUSCULAR VOLUME 93 fL (80-100); MONOCYTES # (AUTO) 0.8 K/uL (0.1-1.0); MONOCYTES % (AUTO) 7.5 % (2.0-9.0); NEUTROPHILS # (AUTO) 7.1 K/uL (1.8-7.7); NEUTROPHILS % (AUTO) 70.7 % (40.0-70.0); PLATELET COUNT (AUTO) 465 K/uL (150-450); RED CELL DISTRIBUTION WIDTH 12.4 % (11.5-14.5)
[2022-12-03 07:12] LABS: ALBUMIN 2.1 g/dL (3.4-5.0); BILIRUBIN,TOTAL 0.4 mg/dL (0.1-1.0); CALCIUM, TOTAL 9.1 mg/dL (8.8-10.5); CREATININE 1.83 mg/dL (0.60-1.30); POTASSIUM 4.6 mmol/L (3.5-5.1); TOTAL PROTEIN, SERUM 8.6 g/dL (6.4-8.2)
[2022-12-03] MEDS: ALBUTEROL SULFATE 2.5 MG/0.5 ML NEB SOLUTION NEB SCH ×5 (07:20→23:44)
[2022-12-03] MEDS: IPRATROPIUM BROMIDE 0.5 MG/2.5 ML NEB SOLUTION NEB SCH ×5 (07:20→23:44)
[2022-12-03] MEDS: FAMOTIDINE 20 MG TABLET PO SCH (08:02)
[2022-12-03] MEDS: VANCOMYCIN HCL 750 MG in DEXTROSE 5%-WATER 250 ML IV SCH ×2 (08:02→20:02)
[2022-12-03 08:22] VITALS: BP 116/63
[2022-12-03] MEDS ORDERED: HEPARIN SODIUM,PORCINE 5,000 UNITS/ML VIAL IVP ONE (12:15)
[2022-12-03] MEDS ORDERED: HEPARIN SODIUM,PORCINE 5,000 UNITS/ML VIAL IVP PRN ×2 (12:15)
[2022-12-03 13:07] LABS: BASOPHILS % (AUTO) 0.5 % (0.0-2.0); EOSINOPHILS % (AUTO) 1.7 % (1.0-6.0); HEMATOCRIT 36.8 % (41-53); HEMOGLOBIN 12.4 g/dL (13.5-17.5); MEAN CORPUSCULAR HEMOGLOBIN 31.6 pg (26.0-34.0); MEAN CORPUSCULAR HGB CONC 33.7 G/dL (31.0-37.0); MEAN CORPUSCULAR VOLUME 94 fL (80-100); MONOCYTES # (AUTO) 0.7 K/uL (0.1-1.0); MONOCYTES % (AUTO) 7.5 % (2.0-9.0); NEUTROPHILS # (AUTO) 6.2 K/uL (1.8-7.7); NEUTROPHILS % (AUTO) 68.3 % (40.0-70.0); PLATELET COUNT (AUTO) 506 K/uL (150-450); RED BLOOD CELL COUNT(AUTO) 3.92 MIL/uL (4.50-5.90); RED CELL DISTRIBUTION WIDTH 12.9 % (11.5-14.5)
[2022-12-03 13:19] LABS: INR 1.1 (0.9-1.1); PROTHROMBIN TIME 11.9 SEC (9.4-11.6)
[2022-12-03] MEDS: HEPARIN SODIUM 25000 UNITS/D5W 250 ML IV PRN (17:20)
[2022-12-03 19:20] VITALS: BP 109/61
[2022-12-03] MEDS: ZOLPIDEM TARTRATE 5 MG TABLET PO PRN (20:34)
[2022-12-03] MEDS: TraMADol HCL 50 MG TABLET PO PRN (23:36)
[2022-12-04] MEDS: ACETAMINOPHEN/CODEINE 300-30 MG TABLET PO PRN ×5 (01:35→21:30)
[2022-12-04] MEDS: HEPARIN SODIUM 25000 UNITS/D5W 250 ML IV PRN ×3 (02:19→22:07)
[2022-12-04] MEDS: PIPERACILLIN/TAZO 3.375 GM/D5W 50 ML IV SCH ×4 (03:51→21:30)
[2022-12-04 04:20] VITALS: BP 109/66
[2022-12-04] MEDS: ACETAMINOPHEN 325 MG TABLET PO PRN ×2 (04:27→19:35)
[2022-12-04] MEDS: ACETYLCYSTEINE 20% 200 MG/ML 4 ML NEB SOLUTION NEB SCH ×5 (06:41→23:11)
[2022-12-04] MEDS: ALBUTEROL SULFATE 2.5 MG/0.5 ML NEB SOLUTION NEB SCH ×5 (06:41→23:11)
[2022-12-04] MEDS: IPRATROPIUM BROMIDE 0.5 MG/2.5 ML NEB SOLUTION NEB SCH ×5 (06:41→23:11)
[2022-12-04 07:25] VITALS: BP 112/66
[2022-12-04] MEDS: VANCOMYCIN HCL 750 MG in DEXTROSE 5%-WATER 250 ML IV SCH ×2 (09:10→19:28)
[2022-12-04] MEDS: TraMADol HCL 50 MG TABLET PO PRN ×4 (09:10→23:35)
[2022-12-04] MEDS: FAMOTIDINE 20 MG TABLET PO SCH (09:10)
[2022-12-04] MEDS: SODIUM CHLORIDE 0.9% 1,000 ML IV SCH (10:22)
[2022-12-04 10:37] LABS: BASOPHILS % (AUTO) 0.7 % (0.0-2.0); EOSINOPHILS % (AUTO) 1.7 % (1.0-6.0); HEMATOCRIT 33.4 % (41-53); HEMOGLOBIN 11.2 g/dL (13.5-17.5); LYMPHOCYTES # (AUTO) 2.2 K/uL (1.0-4.8); LYMPHOCYTES % (AUTO) 24.2 % (22.0-44.0); MEAN CORPUSCULAR HEMOGLOBIN 31.2 pg (26.0-34.0); MEAN CORPUSCULAR HGB CONC 33.6 G/dL (31.0-37.0); MEAN CORPUSCULAR VOLUME 93 fL (80-100); MONOCYTES # (AUTO) 0.6 K/uL (0.1-1.0); MONOCYTES % (AUTO) 6.1 % (2.0-9.0); NEUTROPHILS # (AUTO) 6.1 K/uL (1.8-7.7); NEUTROPHILS % (AUTO) 67.3 % (40.0-70.0); PLATELET COUNT (AUTO) 504 K/uL (150-450); RED CELL DISTRIBUTION WIDTH 12.8 % (11.5-14.5)
[2022-12-04 10:43] LABS: CALCIUM, TOTAL 9.1 mg/dL (8.8-10.5); CREATININE 1.68 mg/dL (0.60-1.30); POTASSIUM 4.6 mmol/L (3.5-5.1)
[2022-12-04 11:05] LABS: VANCOMYCIN,RANDOM 33.2 mcg/mL (25.0-50.0)
[2022-12-04 15:12] VITALS: BP 123/76
[2022-12-04 21:11] VITALS: BP 126/74
[2022-12-04] MEDS: ZOLPIDEM TARTRATE 5 MG TABLET PO PRN (21:31)
[2022-12-05] MEDS: ACETYLCYSTEINE 20% 200 MG/ML 4 ML NEB SOLUTION NEB SCH ×6 (02:32→23:00)
[2022-12-05] MEDS: PIPERACILLIN/TAZO 3.375 GM/D5W 50 ML IV SCH ×4 (04:02→23:14)
[2022-12-05] MEDS: ACETAMINOPHEN/CODEINE 300-30 MG TABLET PO PRN ×3 (04:02→22:43)
[2022-12-05] MEDS: SODIUM CHLORIDE 0.9% 1,000 ML IV SCH ×2 (04:02→20:53)
[2022-12-05 05:10] VITALS: BP 126/76
[2022-12-05] MEDS ORDERED: SODIUM CHLORIDE 0.9% 1,000 ML ONE (06:29)
[2022-12-05] MEDS ORDERED: DOXYCYCLINE HYCLATE 100 MG in DEXTROSE 5%-WATER 100 ML IV ONE (06:30)
[2022-12-05] MEDS ORDERED: BUPIVACAINE HCL/PF 0.25% 30 ML VIAL ONE (06:34)
[2022-12-05] MEDS ORDERED: SODIUM CHLORIDE 0.9% 100 ML ONE (06:34)
[2022-12-05] MEDS ORDERED: DOXYCYCLINE HYCLATE 100 MG/VIAL IPL ONE (06:45)
[2022-12-05] MEDS: ALBUTEROL SULFATE 2.5 MG/0.5 ML NEB SOLUTION NEB SCH ×5 (07:00→22:38)
[2022-12-05] MEDS: IPRATROPIUM BROMIDE 0.5 MG/2.5 ML NEB SOLUTION NEB SCH ×5 (07:00→22:39)
[2022-12-05 07:26] LABS: ABG BASE EXCESS -0.2 mmol/L (-2.0-3.0); ABG CARBOXYHEMOGLOBIN 0.6 % (0.0-1.5); ABG HCO3 24.3 mmol/L (22.0-26.0); ABG METHEMOGLOBIN 0.3 % (0.0-1.5); ABG OXYGEN CONTENT 16.8 mL/dL (15.0-23.0); ABG OXYGEN SATURATION 98.1 % (95.0-98.0); ABG OXYHEMOGLOBIN 97.2 % (94.0-100.0); ABG PCO2 41 mmHg (35-45); ABG PH 7.393 (7.35-7.450); ABG TOTAL HEMOGLOBIN 12.2 G/dL (12.0-18.0); PO2, ARTERIAL BG 105.6 mmHg (88.0-96.0); SOURCE, BLOOD GAS ARTERIAL; TEMPERATURE, FAHRENHEIT, BG 98.4 FAHREN (96.0-98.6)
[2022-12-05 07:27] LABS: ABG A-A DIFF O2 45.3 mmHg (10-20.0); O2 DEVICE,BLOOD GAS CANNULA (ROOM AIR); SITE, BLOOD GAS ARTERIAL LINE
[2022-12-05 07:36] LABS: GLUCOMETER DEV NAME(LOC) SDS.; GLUCOSE,POINT OF CARE 95 MG/DL (70-110)
[2022-12-05 07:56] LABS: POTASSIUM 4.4 mmol/L (3.5-5.1)
[2022-12-05 08:01] LABS: CALCIUM, TOTAL 9.2 mg/dL (8.8-10.5); CREATININE 1.84 mg/dL (0.60-1.30)
[2022-12-05] MEDS ORDERED: FentaNYL CITRATE PF 100 MCG/2 ML VIAL ONE ×2 (09:27→09:47)
[2022-12-05] MEDS ORDERED: MEPERIDINE-PF 25 MG/ML VIAL IVP PRN (09:30)
[2022-12-05] MEDS: FentaNYL CITRATE PF 100 MCG/2 ML VIAL IVP PRN ×2 (09:30→09:43)
[2022-12-05] MEDS ORDERED: HYDROmorphone HCL 2 MG/ML SYRINGE ONE ×3 (09:37→10:44)
[2022-12-05] MEDS: HYDROmorphone HCL 2 MG/ML SYRINGE IVP PRN ×2 (09:38→09:53)
[2022-12-05] MEDS ORDERED: HYDROmorphone HCL 2 MG/ML SYRINGE IVP ONE ×2 (10:15→11:45)
[2022-12-05] MEDS ORDERED: HYDROmorphone HCL 2 MG/ML SYRINGE IM ONE (10:45)
[2022-12-05] MEDS ORDERED: HYDROmorphone HCL 2 MG/ML SYRINGE IVP PRN (11:00)
[2022-12-05] MEDS: FAMOTIDINE 20 MG TABLET PO SCH (11:57)
[2022-12-05] MEDS ORDERED: DEXAMETHASONE SOD PHOS 4 MG/ML VIAL IVP ONE (12:00)
[2022-12-05] MEDS ORDERED: MORPHINE SULFATE/PF 0.5 MG/ML 10 ML AMP IVP ONE (12:00)
[2022-12-05] MEDS ORDERED: MIDAZOLAM HCL 2 MG/2 ML VIAL IVP ONE (12:00)
[2022-12-05] MEDS ORDERED: FentaNYL CITRATE PF 100 MCG/2 ML VIAL IVP ONE (12:00)
[2022-12-05] MEDS ORDERED: ONDANSETRON HCL 4 MG/2 ML VIAL IVP ONE (12:00)
[2022-12-05] MEDS ORDERED: ROCURONIUM BROMIDE 10 MG/ML 5 ML VIAL IVP ONE (12:00)
[2022-12-05] MEDS ORDERED: LIDOCAINE/PF 2% 5 ML VIAL IM ONE (12:00)
[2022-12-05] MEDS ORDERED: KETOROLAC TROMETHAMINE 60 MG/2 ML VIAL IM ONE (12:00)
[2022-12-05] MEDS ORDERED: PROPOFOL 1% 20 ML VIAL IVP ONE (12:00)
[2022-12-05 15:28] VITALS: BP 130/82
[2022-12-05 15:56] LABS: SPECIMENTYPE,BODY FLUID PLEURAL
[2022-12-05 17:18] LABS: APPEARANCE,SPUN,BODY FLUID BLOODY (CLEAR); APPEARANCE,UNSPUN,BODY FLUID BLOODY (CLEAR); BASOPHILS,BODY FLUID 0 %; COLOR,BODY FLUID RED (LT YELLOW); EOSINOPHILS,BF (ANAL) 0 %; LYMPHOCYTES,BODY FLUID 22 %; MONOCYTES,BODY FLUID 0 %; NEUTROPHILS,BODY FLUID 78 %; TOTAL VOLUME,BODY FLUID 250 mL; WBC, BODY FLUID 3750 /cu. mm.
[2022-12-05 19:38] VITALS: BP 118/74
[2022-12-05] MEDS: OXYGEN THERAPY IH SCH (20:00)
[2022-12-05] MEDS: TraMADol HCL 50 MG TABLET PO PRN (20:53)
[2022-12-05] MEDS: VANCOMYCIN HCL 750 MG in DEXTROSE 5%-WATER 250 ML IV SCH (20:53)
[2022-12-05] MEDS: ZOLPIDEM TARTRATE 5 MG TABLET PO PRN (21:07)
[2022-12-06] MEDS: ACETYLCYSTEINE 20% 200 MG/ML 4 ML NEB SOLUTION NEB SCH ×6 (03:00→23:00)
[2022-12-06] MEDS: PIPERACILLIN/TAZO 3.375 GM/D5W 50 ML IV SCH ×4 (04:26→21:53)
[2022-12-06 05:21] VITALS: BP 105/58
[2022-12-06] MEDS: ACETAMINOPHEN/CODEINE 300-30 MG TABLET PO PRN ×4 (05:35→21:58)
[2022-12-06 06:10] LABS: BASOPHILS % (AUTO) 0.1 % (0.0-2.0); EOSINOPHILS % (AUTO) 0.1 % (1.0-6.0); HEMATOCRIT 29.4 % (41-53); HEMOGLOBIN 9.8 g/dL (13.5-17.5); LYMPHOCYTES # (AUTO) 1.9 K/uL (1.0-4.8); LYMPHOCYTES % (AUTO) 13.5 % (22.0-44.0); MEAN CORPUSCULAR HEMOGLOBIN 31.1 pg (26.0-34.0); MEAN CORPUSCULAR HGB CONC 33.3 G/dL (31.0-37.0); MEAN CORPUSCULAR VOLUME 93 fL (80-100); MONOCYTES # (AUTO) 0.7 K/uL (0.1-1.0); MONOCYTES % (AUTO) 5.3 % (2.0-9.0); NEUTROPHILS # (AUTO) 11.5 K/uL (1.8-7.7); PLATELET COUNT (AUTO) 457 K/uL (150-450); RED BLOOD CELL COUNT(AUTO) 3.15 MIL/uL (4.50-5.90); RED CELL DISTRIBUTION WIDTH 12.7 % (11.5-14.5)
[2022-12-06 06:22] LABS: CALCIUM, TOTAL 8.7 mg/dL (8.8-10.5); CREATININE 1.74 mg/dL (0.60-1.30); POTASSIUM 4.7 mmol/L (3.5-5.1)
[2022-12-06] MEDS: OXYGEN THERAPY IH SCH (08:00)
[2022-12-06 08:12] VITALS: BP 115/64
[2022-12-06] MEDS: VANCOMYCIN HCL 750 MG in DEXTROSE 5%-WATER 250 ML IV SCH ×2 (08:21→20:05)
[2022-12-06] MEDS: TraMADol HCL 50 MG TABLET PO PRN ×3 (08:21→20:05)
[2022-12-06] MEDS: FAMOTIDINE 20 MG TABLET PO SCH (08:22)
[2022-12-06] MEDS: APIXABAN 5 MG TABLET PO SCH ×2 (09:54→20:05)
[2022-12-06] MEDS: SODIUM CHLORIDE 0.9% 1,000 ML IV SCH (09:57)
[2022-12-06] MEDS: IPRATROPIUM BROMIDE 0.5 MG/2.5 ML NEB SOLUTION NEB SCH ×5 (11:58→23:00)
[2022-12-06] MEDS: ALBUTEROL SULFATE 2.5 MG/0.5 ML NEB SOLUTION NEB SCH ×5 (11:58→23:00)
[2022-12-06 13:49] LABS: APPEARANCE,URINE CLEAR (CLEAR); BILIRUBIN,URINE NEGATIVE (NEGATIVE); GLUCOSE, URINE (UA) NEGATIVE (NEGATIVE); KETONES,URINE NEGATIVE (NEGATIVE); LEUKOCYTE ESTERASE ,URINE NEGATIVE (NEGATIVE); NITRATE,URINE NEGATIVE (NEGATIVE); OCCULT BLOOD,URINE NEGATIVE (NEGATIVE); PH,URINE 5.5 (5.0-8.0); PROTEIN,URINE NEGATIVE (NEGATIVE); SPECIFIC GRAVITIY, URINE 1.013 (1.003-1.030); UROBILINOGEN,URINE <=1.0 mg/dL (<=1.0)
[2022-12-06 13:50] LABS: BACTERIA,URINE None Seen /HPF (None Seen); RBC,URINE None Seen /HPF (0-2); WBC,URINE None Seen /HPF (0-5)
[2022-12-06 13:51] LABS: CREATININE,URINE RANDOM 59.2 mg/dL (30.0-125.0); PROTEIN,URINE RANDOM 13 mg/dL (0-11.9)
[2022-12-06 20:00] VITALS: BP 126/59
[2022-12-06] MEDS: ZOLPIDEM TARTRATE 5 MG TABLET PO PRN (20:06)
[2022-12-06] MEDS: ACETAMINOPHEN 325 MG TABLET PO PRN (20:56)
[2022-12-07] MEDS: ACETYLCYSTEINE 20% 200 MG/ML 4 ML NEB SOLUTION NEB SCH ×6 (03:00→23:00)
[2022-12-07] MEDS: PIPERACILLIN/TAZO 3.375 GM/D5W 50 ML IV SCH ×4 (03:55→21:57)
[2022-12-07] MEDS: ACETAMINOPHEN/CODEINE 300-30 MG TABLET PO PRN ×4 (04:02→20:02)
[2022-12-07 04:06] VITALS: BP 119/71
[2022-12-07] MEDS: TraMADol HCL 50 MG TABLET PO PRN ×4 (06:18→22:00)
[2022-12-07] MEDS: VANCOMYCIN HCL 750 MG in DEXTROSE 5%-WATER 250 ML IV SCH ×2 (08:15→20:02)
[2022-12-07] MEDS: FAMOTIDINE 20 MG TABLET PO SCH (08:15)
[2022-12-07] MEDS: APIXABAN 5 MG TABLET PO SCH ×2 (08:18→21:57)
[2022-12-07 08:24] LABS: BASOPHILS % (AUTO) 0.7 % (0.0-2.0); EOSINOPHILS % (AUTO) 1.4 % (1.0-6.0); HEMATOCRIT 30.4 % (41-53); HEMOGLOBIN 10.4 g/dL (13.5-17.5); LYMPHOCYTES # (AUTO) 2.6 K/uL (1.0-4.8); LYMPHOCYTES % (AUTO) 25.4 % (22.0-44.0); MEAN CORPUSCULAR HEMOGLOBIN 31.9 pg (26.0-34.0); MEAN CORPUSCULAR HGB CONC 34.2 G/dL (31.0-37.0); MEAN CORPUSCULAR VOLUME 93 fL (80-100); MONOCYTES # (AUTO) 0.7 K/uL (0.1-1.0); MONOCYTES % (AUTO) 6.8 % (2.0-9.0); NEUTROPHILS # (AUTO) 6.7 K/uL (1.8-7.7); NEUTROPHILS % (AUTO) 65.7 % (40.0-70.0); PLATELET COUNT (AUTO) 391 K/uL (150-450); RED BLOOD CELL COUNT(AUTO) 3.26 MIL/uL (4.50-5.90); RED CELL DISTRIBUTION WIDTH 12.9 % (11.5-14.5)
[2022-12-07 08:39] VITALS: BP 133/72
[2022-12-07 08:39] LABS: ALBUMIN 2.3 g/dL (3.4-5.0); BILIRUBIN,TOTAL 0.3 mg/dL (0.1-1.0); CALCIUM, TOTAL 9.1 mg/dL (8.8-10.5); CREATININE 1.67 mg/dL (0.60-1.30); POTASSIUM 4.1 mmol/L (3.5-5.1); TOTAL PROTEIN, SERUM 7.7 g/dL (6.4-8.2)
[2022-12-07] MEDS: ALBUTEROL SULFATE 2.5 MG/0.5 ML NEB SOLUTION NEB SCH ×5 (09:02→23:00)
[2022-12-07] MEDS: IPRATROPIUM BROMIDE 0.5 MG/2.5 ML NEB SOLUTION NEB SCH ×5 (09:03→23:00)
[2022-12-07 19:30] VITALS: BP 114/58
[2022-12-07] MEDS: ETHYL ALCOHOL 62% ANTISEPTIC NASAL SANITIZER 0.6 ML AMPUL NASAL SCH (20:02)
[2022-12-07] MEDS: OXYGEN THERAPY IH SCH (20:03)
[2022-12-07] MEDS: ZOLPIDEM TARTRATE 5 MG TABLET PO PRN (20:04)
[2022-12-08] MEDS: ACETAMINOPHEN/CODEINE 300-30 MG TABLET PO PRN ×4 (02:20→20:12)
[2022-12-08 04:00] VITALS: BP 133/78
[2022-12-08] MEDS: PIPERACILLIN/TAZO 3.375 GM/D5W 50 ML IV SCH ×4 (04:11→22:38)
[2022-12-08] MEDS: TraMADol HCL 50 MG TABLET PO PRN ×4 (06:10→22:38)
[2022-12-08] MEDS: ACETYLCYSTEINE 20% 200 MG/ML 4 ML NEB SOLUTION NEB SCH ×5 (07:00→22:15)
[2022-12-08] MEDS: IPRATROPIUM BROMIDE 0.5 MG/2.5 ML NEB SOLUTION NEB SCH ×5 (07:00→22:15)
[2022-12-08] MEDS: ALBUTEROL SULFATE 2.5 MG/0.5 ML NEB SOLUTION NEB SCH ×5 (07:00→22:15)
[2022-12-08 07:02] LABS: BASOPHILS % (AUTO) 0.4 % (0.0-2.0); EOSINOPHILS % (AUTO) 1.9 % (1.0-6.0); HEMOGLOBIN 10.8 g/dL (13.5-17.5); LYMPHOCYTES # (AUTO) 2.4 K/uL (1.0-4.8); LYMPHOCYTES % (AUTO) 25.5 % (22.0-44.0); MEAN CORPUSCULAR HEMOGLOBIN 31.4 pg (26.0-34.0); MEAN CORPUSCULAR HGB CONC 33.8 G/dL (31.0-37.0); MEAN CORPUSCULAR VOLUME 93 fL (80-100); MONOCYTES # (AUTO) 0.7 K/uL (0.1-1.0); MONOCYTES % (AUTO) 7.8 % (2.0-9.0); NEUTROPHILS % (AUTO) 64.4 % (40.0-70.0); PLATELET COUNT (AUTO) 385 K/uL (150-450); RED BLOOD CELL COUNT(AUTO) 3.45 MIL/uL (4.50-5.90); RED CELL DISTRIBUTION WIDTH 12.6 % (11.5-14.5)
[2022-12-08 07:26] LABS: CALCIUM, TOTAL 9.3 mg/dL (8.8-10.5); CREATININE 1.66 mg/dL (0.60-1.30); POTASSIUM 4.4 mmol/L (3.5-5.1); VANCOMYCIN,RANDOM 18.9 mcg/mL (25.0-50.0)
[2022-12-08 07:41] VITALS: BP 133/69
[2022-12-08] MEDS: ETHYL ALCOHOL 62% ANTISEPTIC NASAL SANITIZER 0.6 ML AMPUL NASAL SCH ×2 (09:06→20:13)
[2022-12-08] MEDS: VANCOMYCIN HCL 750 MG in DEXTROSE 5%-WATER 250 ML IV SCH ×2 (09:06→20:13)
[2022-12-08] MEDS: FAMOTIDINE 20 MG TABLET PO SCH (09:06)
[2022-12-08] MEDS: APIXABAN 5 MG TABLET PO SCH ×2 (09:06→20:13)
[2022-12-08] MEDS: OXYGEN THERAPY IH SCH ×2 (09:20→20:00)
[2022-12-08 15:29] VITALS: BP 119/68
[2022-12-08] MEDS ORDERED: SODIUM CHLORIDE 3% 15 ML NEB SOLUTION NEB ONE (19:27)
[2022-12-08 20:05] VITALS: BP 118/71
[2022-12-08] MEDS: ZOLPIDEM TARTRATE 5 MG TABLET PO PRN (20:13)
[2022-12-09] MEDS: ACETYLCYSTEINE 20% 200 MG/ML 4 ML NEB SOLUTION NEB SCH ×6 (03:00→22:02)
[2022-12-09 04:18] VITALS: BP 118/72
[2022-12-09] MEDS: ACETAMINOPHEN/CODEINE 300-30 MG TABLET PO PRN ×4 (04:23→22:50)
[2022-12-09] MEDS: PIPERACILLIN/TAZO 3.375 GM/D5W 50 ML IV SCH ×4 (04:23→22:28)
[2022-12-09] MEDS: IPRATROPIUM BROMIDE 0.5 MG/2.5 ML NEB SOLUTION NEB SCH ×5 (05:59→22:02)
[2022-12-09 07:07] LABS: ALBUMIN URINE (ELP) Note: %
[2022-12-09] MEDS ORDERED: SODIUM CHLORIDE 3% 15 ML NEB SOLUTION NEB ONE (07:12)
[2022-12-09] MEDS: ALBUTEROL SULFATE 2.5 MG/0.5 ML NEB SOLUTION NEB SCH ×5 (07:25→22:02)
[2022-12-09 08:06] LABS: HIV 1-2 SCREEN 4TH GEN W/RFLX Non Reactive (Non Reactive)
[2022-12-09 08:09] VITALS: BP 130/88
[2022-12-09] MEDS: APIXABAN 5 MG TABLET PO SCH ×2 (09:38→20:23)
[2022-12-09] MEDS: ETHYL ALCOHOL 62% ANTISEPTIC NASAL SANITIZER 0.6 ML AMPUL NASAL SCH ×2 (09:38→20:23)
[2022-12-09] MEDS: FAMOTIDINE 20 MG TABLET PO SCH (09:38)
[2022-12-09 09:41] LABS: BASOPHILS % (AUTO) 0.6 % (0.0-2.0); EOSINOPHILS % (AUTO) 2.2 % (1.0-6.0); HEMATOCRIT 32.7 % (41-53); HEMOGLOBIN 11.3 g/dL (13.5-17.5); LYMPHOCYTES # (AUTO) 1.6 K/uL (1.0-4.8); LYMPHOCYTES % (AUTO) 18.6 % (22.0-44.0); MEAN CORPUSCULAR HEMOGLOBIN 31.9 pg (26.0-34.0); MEAN CORPUSCULAR HGB CONC 34.7 G/dL (31.0-37.0); MEAN CORPUSCULAR VOLUME 92 fL (80-100); MONOCYTES # (AUTO) 0.5 K/uL (0.1-1.0); MONOCYTES % (AUTO) 5.7 % (2.0-9.0); NEUTROPHILS # (AUTO) 6.2 K/uL (1.8-7.7); NEUTROPHILS % (AUTO) 72.9 % (40.0-70.0); PLATELET COUNT (AUTO) 351 K/uL (150-450); RED BLOOD CELL COUNT(AUTO) 3.55 MIL/uL (4.50-5.90); RED CELL DISTRIBUTION WIDTH 12.8 % (11.5-14.5)
[2022-12-09] MEDS: VANCOMYCIN HCL 750 MG in DEXTROSE 5%-WATER 250 ML IV SCH ×2 (09:48→20:22)
[2022-12-09 09:52] LABS: CALCIUM, TOTAL 9.3 mg/dL (8.8-10.5); CREATININE 1.6 mg/dL (0.60-1.30); POTASSIUM 3.9 mmol/L (3.5-5.1)
[2022-12-09] MEDS: TraMADol HCL 50 MG TABLET PO PRN ×2 (13:18→20:22)
[2022-12-09] MEDS: OXYGEN THERAPY IH SCH (20:00)
[2022-12-09 20:10] VITALS: BP 137/69
[2022-12-09] MEDS: ZOLPIDEM TARTRATE 5 MG TABLET PO PRN (20:22)
[2022-12-10] MEDS: ACETYLCYSTEINE 20% 200 MG/ML 4 ML NEB SOLUTION NEB SCH ×7 (03:00→23:00)
[2022-12-10 04:40] VITALS: BP_SYST 118; BP_SYST 121; BP_DIAS 68; BP_DIAS 69
[2022-12-10] MEDS: ACETAMINOPHEN/CODEINE 300-30 MG TABLET PO PRN ×4 (04:55→20:14)
[2022-12-10] MEDS: PIPERACILLIN/TAZO 3.375 GM/D5W 50 ML IV SCH ×4 (04:56→22:07)
[2022-12-10] MEDS: IPRATROPIUM BROMIDE 0.5 MG/2.5 ML NEB SOLUTION NEB SCH ×6 (06:55→23:00)
[2022-12-10] MEDS: ALBUTEROL SULFATE 2.5 MG/0.5 ML NEB SOLUTION NEB SCH ×6 (06:55→23:00)
[2022-12-10] MEDS: OXYGEN THERAPY IH SCH ×2 (08:00→20:00)
[2022-12-10] MEDS: ETHYL ALCOHOL 62% ANTISEPTIC NASAL SANITIZER 0.6 ML AMPUL NASAL SCH ×2 (08:37→20:14)
[2022-12-10] MEDS: VANCOMYCIN HCL 750 MG in DEXTROSE 5%-WATER 250 ML IV SCH ×2 (08:37→20:14)
[2022-12-10] MEDS: APIXABAN 5 MG TABLET PO SCH ×2 (08:37→20:14)
[2022-12-10] MEDS: FAMOTIDINE 20 MG TABLET PO SCH (08:37)
[2022-12-10] MEDS: TraMADol HCL 50 MG TABLET PO PRN ×3 (08:59→23:15)
[2022-12-10 09:08] LABS: QUANTIFERON, TB GOLD PLUS Negative (Negative)
[2022-12-10 09:33] LABS: CALCIUM, TOTAL 9.5 mg/dL (8.8-10.5); CREATININE 1.55 mg/dL (0.60-1.30); POTASSIUM 4.3 mmol/L (3.5-5.1)
[2022-12-10 13:41] VITALS: BP 129/77
[2022-12-10 20:00] VITALS: BP 111/69
[2022-12-10] MEDS: ZOLPIDEM TARTRATE 5 MG TABLET PO PRN (20:19)
[2022-12-11] MEDS: ACETYLCYSTEINE 20% 200 MG/ML 4 ML NEB SOLUTION NEB SCH ×6 (03:00→23:00)
[2022-12-11] MEDS: PIPERACILLIN/TAZO 3.375 GM/D5W 50 ML IV SCH ×4 (04:07→22:04)
[2022-12-11] MEDS: ACETAMINOPHEN/CODEINE 300-30 MG TABLET PO PRN ×4 (06:06→22:20)
[2022-12-11 07:00] LABS: CALCIUM, TOTAL 9.4 mg/dL (8.8-10.5); CREATININE 1.72 mg/dL (0.60-1.30); POTASSIUM 4.3 mmol/L (3.5-5.1); VANCOMYCIN,RANDOM 18.8 mcg/mL (25.0-50.0)
[2022-12-11] MEDS: ALBUTEROL SULFATE 2.5 MG/0.5 ML NEB SOLUTION NEB SCH ×5 (07:08→23:25)
[2022-12-11] MEDS: IPRATROPIUM BROMIDE 0.5 MG/2.5 ML NEB SOLUTION NEB SCH ×5 (07:08→23:25)
[2022-12-11] MEDS: OXYGEN THERAPY IH SCH ×2 (08:00→20:00)
[2022-12-11] MEDS: ETHYL ALCOHOL 62% ANTISEPTIC NASAL SANITIZER 0.6 ML AMPUL NASAL SCH ×2 (08:01→19:48)
[2022-12-11] MEDS: VANCOMYCIN HCL 750 MG in DEXTROSE 5%-WATER 250 ML IV SCH ×2 (08:01→19:48)
[2022-12-11] MEDS: APIXABAN 5 MG TABLET PO SCH ×2 (08:01→19:48)
[2022-12-11] MEDS: FAMOTIDINE 20 MG TABLET PO SCH (08:01)
[2022-12-11] MEDS: TraMADol HCL 50 MG TABLET PO PRN ×3 (08:02→19:48)
[2022-12-11 08:25] VITALS: BP 124/78
[2022-12-11] MEDS ORDERED: SODIUM CHLORIDE 3% 15 ML NEB SOLUTION NEB ONE (15:24)
[2022-12-11 16:39] VITALS: BP 131/69
[2022-12-11] MEDS: ZOLPIDEM TARTRATE 5 MG TABLET PO PRN (20:00)
[2022-12-11 20:25] VITALS: BP 125/75
[2022-12-12] MEDS: ACETAMINOPHEN/CODEINE 300-30 MG TABLET PO PRN ×3 (03:21→22:55)
[2022-12-12] MEDS: PIPERACILLIN/TAZO 3.375 GM/D5W 50 ML IV SCH ×4 (03:22→22:55)
[2022-12-12] MEDS: ACETYLCYSTEINE 20% 200 MG/ML 4 ML NEB SOLUTION NEB SCH (07:00)
[2022-12-12 07:43] VITALS: BP 122/69
[2022-12-12 07:51] LABS: CALCIUM, TOTAL 9.3 mg/dL (8.8-10.5); CREATININE 1.68 mg/dL (0.60-1.30); POTASSIUM 4.1 mmol/L (3.5-5.1)
[2022-12-12] MEDS: OXYGEN THERAPY IH SCH ×2 (08:00→20:31)
[2022-12-12] MEDS: ALBUTEROL SULFATE 2.5 MG/0.5 ML NEB SOLUTION NEB SCH (08:09)
[2022-12-12] MEDS: IPRATROPIUM BROMIDE 0.5 MG/2.5 ML NEB SOLUTION NEB SCH (08:09)
[2022-12-12] MEDS: FAMOTIDINE 20 MG TABLET PO SCH (08:27)
[2022-12-12] MEDS: VANCOMYCIN HCL 750 MG in DEXTROSE 5%-WATER 250 ML IV SCH ×2 (08:27→20:24)
[2022-12-12] MEDS: APIXABAN 5 MG TABLET PO SCH ×2 (08:27→20:24)
[2022-12-12] MEDS: ETHYL ALCOHOL 62% ANTISEPTIC NASAL SANITIZER 0.6 ML AMPUL NASAL SCH ×2 (08:27→20:24)
[2022-12-12] MEDS: TraMADol HCL 50 MG TABLET PO PRN ×2 (16:13→20:25)
[2022-12-12 20:20] VITALS: BP 118/88
[2022-12-12] MEDS ORDERED: SODIUM CHLORIDE 0.9% 1,000 ML ONE (21:19)
[2022-12-12] MEDS: ZOLPIDEM TARTRATE 5 MG TABLET PO PRN (22:55)
[2022-12-13] MEDS: PIPERACILLIN/TAZO 3.375 GM/D5W 50 ML IV SCH ×4 (05:06→21:58)
[2022-12-13] MEDS: TraMADol HCL 50 MG TABLET PO PRN ×3 (06:21→18:31)
[2022-12-13 07:14] LABS: CALCIUM, TOTAL 9.7 mg/dL (8.8-10.5); CREATININE 1.56 mg/dL (0.60-1.30)
[2022-12-13 07:39] VITALS: BP 124/67
[2022-12-13] MEDS: OXYGEN THERAPY IH SCH ×2 (08:00→20:40)
[2022-12-13] MEDS: ETHYL ALCOHOL 62% ANTISEPTIC NASAL SANITIZER 0.6 ML AMPUL NASAL SCH ×2 (08:10→20:39)
[2022-12-13] MEDS: FAMOTIDINE 20 MG TABLET PO SCH (08:10)
[2022-12-13] MEDS: APIXABAN 5 MG TABLET PO SCH ×2 (08:10→20:43)
[2022-12-13] MEDS: VANCOMYCIN HCL 750 MG in DEXTROSE 5%-WATER 250 ML IV SCH ×2 (08:11→20:39)
[2022-12-13 15:57] VITALS: BP 135/71
[2022-12-13] MEDS: ACETAMINOPHEN/CODEINE 300-30 MG TABLET PO PRN ×2 (16:22→22:02)
[2022-12-13 20:45] VITALS: BP 123/61
[2022-12-13] MEDS: ZOLPIDEM TARTRATE 5 MG TABLET PO PRN (22:02)
[2022-12-14 04:39] VITALS: BP 121/82
[2022-12-14] MEDS: PIPERACILLIN/TAZO 3.375 GM/D5W 50 ML IV SCH ×4 (05:06→21:51)
[2022-12-14] MEDS: ACETAMINOPHEN/CODEINE 300-30 MG TABLET PO PRN ×3 (06:02→21:53)
[2022-12-14 07:00] LABS: BASOPHILS % (AUTO) 0.4 % (0.0-2.0); EOSINOPHILS % (AUTO) 2.9 % (1.0-6.0); HEMATOCRIT 35.6 % (41-53); HEMOGLOBIN 12.2 g/dL (13.5-17.5); LYMPHOCYTES # (AUTO) 1.9 K/uL (1.0-4.8); LYMPHOCYTES % (AUTO) 28.6 % (22.0-44.0); MEAN CORPUSCULAR HEMOGLOBIN 31.5 pg (26.0-34.0); MEAN CORPUSCULAR HGB CONC 34.2 G/dL (31.0-37.0); MEAN CORPUSCULAR VOLUME 92 fL (80-100); MONOCYTES # (AUTO) 0.6 K/uL (0.1-1.0); MONOCYTES % (AUTO) 9.5 % (2.0-9.0); NEUTROPHILS # (AUTO) 3.9 K/uL (1.8-7.7); NEUTROPHILS % (AUTO) 58.6 % (40.0-70.0); PLATELET COUNT (AUTO) 302 K/uL (150-450); RED BLOOD CELL COUNT(AUTO) 3.85 MIL/uL (4.50-5.90); RED CELL DISTRIBUTION WIDTH 13.3 % (11.5-14.5)
[2022-12-14 07:22] LABS: CALCIUM, TOTAL 9.2 mg/dL (8.8-10.5); CREATININE 1.55 mg/dL (0.60-1.30); POTASSIUM 4.1 mmol/L (3.5-5.1); VANCOMYCIN,RANDOM 23.3 mcg/mL (25.0-50.0)
[2022-12-14] MEDS: APIXABAN 5 MG TABLET PO SCH ×2 (07:57→21:51)
[2022-12-14] MEDS: ETHYL ALCOHOL 62% ANTISEPTIC NASAL SANITIZER 0.6 ML AMPUL NASAL SCH ×2 (07:57→21:52)
[2022-12-14] MEDS: FAMOTIDINE 20 MG TABLET PO SCH (07:58)
[2022-12-14] MEDS: OXYGEN THERAPY IH SCH ×2 (08:00→21:53)
[2022-12-14 08:03] VITALS: BP 122/62
[2022-12-14] MEDS: TraMADol HCL 50 MG TABLET PO PRN ×2 (09:20→14:09)
[2022-12-14] MEDS ORDERED: VANCOMYCIN HCL 1.5 GM in DEXTROSE 5%-WATER 250 ML IV ONE (10:00)
[2022-12-14 15:53] VITALS: BP 131/84
[2022-12-14 19:43] VITALS: BP 117/71
[2022-12-14] MEDS: ZOLPIDEM TARTRATE 5 MG TABLET PO PRN (21:52)
[2022-12-15 04:42] VITALS: BP 118/64
[2022-12-15] MEDS: PIPERACILLIN/TAZO 3.375 GM/D5W 50 ML IV SCH ×4 (04:49→21:33)
[2022-12-15] MEDS: ACETAMINOPHEN/CODEINE 300-30 MG TABLET PO PRN ×3 (04:50→21:34)
[2022-12-15 07:39] VITALS: BP 121/78
[2022-12-15 07:52] LABS: CALCIUM, TOTAL 9.4 mg/dL (8.8-10.5); CREATININE 1.62 mg/dL (0.60-1.30); POTASSIUM 4.1 mmol/L (3.5-5.1)
[2022-12-15] MEDS: OXYGEN THERAPY IH SCH (08:00)
[2022-12-15] MEDS: ETHYL ALCOHOL 62% ANTISEPTIC NASAL SANITIZER 0.6 ML AMPUL NASAL SCH ×2 (08:01→21:35)
[2022-12-15] MEDS: FAMOTIDINE 20 MG TABLET PO SCH (08:01)
[2022-12-15] MEDS: VANCOMYCIN HCL 1.5 GM in DEXTROSE 5%-WATER 250 ML IV SCH (08:02)
[2022-12-15] MEDS: APIXABAN 5 MG TABLET PO SCH ×2 (08:02→21:33)
[2022-12-15] MEDS: TraMADol HCL 50 MG TABLET PO PRN (10:50)
[2022-12-15 20:21] VITALS: BP 112/74
[2022-12-15] MEDS: ZOLPIDEM TARTRATE 5 MG TABLET PO PRN (21:33)
[2022-12-16] MEDS: ACETAMINOPHEN/CODEINE 300-30 MG TABLET PO PRN ×4 (05:36→21:15)
[2022-12-16] MEDS: PIPERACILLIN/TAZO 3.375 GM/D5W 50 ML IV SCH ×4 (05:36→21:14)
[2022-12-16 05:46] VITALS: BP 118/65
[2022-12-16] MEDS: ETHYL ALCOHOL 62% ANTISEPTIC NASAL SANITIZER 0.6 ML AMPUL NASAL SCH ×2 (07:53→21:15)
[2022-12-16] MEDS: FAMOTIDINE 20 MG TABLET PO SCH (07:53)
[2022-12-16] MEDS: APIXABAN 5 MG TABLET PO SCH ×2 (07:53→21:14)
[2022-12-16] MEDS: VANCOMYCIN HCL 1.5 GM in DEXTROSE 5%-WATER 250 ML IV SCH (08:00)
[2022-12-16 08:08] VITALS: BP 103/64
[2022-12-16 09:36] LABS: CALCIUM, TOTAL 9.2 mg/dL (8.8-10.5); CREATININE 1.75 mg/dL (0.60-1.30); POTASSIUM 3.5 mmol/L (3.5-5.1); VANCOMYCIN,RANDOM 46.8 mcg/mL (25.0-50.0)
[2022-12-16 20:42] VITALS: BP 118/63
[2022-12-16] MEDS: ZOLPIDEM TARTRATE 5 MG TABLET PO PRN (21:14)
[2022-12-17 04:44] VITALS: BP 119/69
[2022-12-17] MEDS: PIPERACILLIN/TAZO 3.375 GM/D5W 50 ML IV SCH (05:56)
[2022-12-17] MEDS: ACETAMINOPHEN/CODEINE 300-30 MG TABLET PO PRN ×2 (05:56→11:23)
[2022-12-17 07:21] LABS: CALCIUM, TOTAL 9.2 mg/dL (8.8-10.5); CREATININE 1.6 mg/dL (0.60-1.30); POTASSIUM 4.4 mmol/L (3.5-5.1)
[2022-12-17 08:00] VITALS: BP 112/75
[2022-12-17] MEDS: VANCOMYCIN HCL 1.5 GM in DEXTROSE 5%-WATER 250 ML IV SCH (08:24)
[2022-12-17] MEDS: APIXABAN 5 MG TABLET PO SCH (08:24)
[2022-12-17] MEDS: FAMOTIDINE 20 MG TABLET PO SCH (08:24)
[2022-12-17] MEDS: ETHYL ALCOHOL 62% ANTISEPTIC NASAL SANITIZER 0.6 ML AMPUL NASAL SCH (08:24)
[2022-12-17] MEDS ORDERED: AMOX1TAB16 PO (11:49)
[2022-12-17] MEDS ORDERED: APIX5TAB PO (11:52)
[2022-12-17] MEDS ORDERED: FAMO20 PO (11:53)
[2022-12-17] MEDS ORDERED: ACET-2247 PO (11:53)
[2022-12-17] MEDS ORDERED: AMOX TR/POT CLAV 875 MG/125 MG TABLET PO SCH (21:00)
== END 2022-12-17 15:18 | DRG 853 ==
LOC: EMS 04:12 → AHU 13:24 → 5S 13:38 → 5N 14:20 → 6S 11-27 08:30
PROVIDERS: ADMIT Internal Medicine; ATTEND Internal Medicine
PROC: 5A09357 Assistance with Respiratory Ventilation, Less than 24 Consecutive Hours, Continuous Positive Airway Pressure (ICD-10-PCS; 2022-11-20)
PROC: 5A09357 Assistance with Respiratory Ventilation, Less than 24 Consecutive Hours, Continuous Positive Airway Pressure (ICD-10-PCS; 2022-11-21)
PROC: 5A09357 Assistance with Respiratory Ventilation, Less than 24 Consecutive Hours, Continuous Positive Airway Pressure (ICD-10-PCS; 2022-11-22)
PROC: 05HY33Z Insertion of Infusion Device into Upper Vein, Percutaneous Approach (ICD-10-PCS; 2022-11-24)
PROC: 0BNL4ZZ Release Left Lung, Percutaneous Endoscopic Approach (ICD-10-PCS; principal; 2022-12-02)
PROC: 05HY33Z Insertion of Infusion Device into Upper Vein, Percutaneous Approach (ICD-10-PCS; 2022-12-03)
DX: A41.9 Sepsis, unspecified organism (principal); J18.9 Pneumonia, unspecified organism; J96.01 Acute respiratory failure with hypoxia; J86.9 Pyothorax without fistula; M62.82 Rhabdomyolysis; J98.11 Atelectasis; I82.4Z2 Acute embolism and thrombosis of unspecified deep veins of left distal lower extremity; N17.9 Acute kidney failure, unspecified; E87.1 Hypo-osmolality and hyponatremia; J94.8 Other specified pleural conditions; F15.13 Other stimulant abuse with withdrawal; J90 Pleural effusion, not elsewhere classified; Z20.822 Contact with and (suspected) exposure to COVID-19; G62.9 Polyneuropathy, unspecified; F41.9 Anxiety disorder, unspecified; B19.20 Unspecified viral hepatitis C without hepatic coma; M54.30 Sciatica, unspecified side; E88.09 Other disorders of plasma-protein metabolism, not elsewhere classified; R59.0 Localized enlarged lymph nodes; I12.9 Hypertensive chronic kidney disease with stage 1 through stage 4 chronic kidney disease, or unspecified chronic kidney disease; N18.32 Chronic kidney disease, stage 3b; E87.6 Hypokalemia; F14.90 Cocaine use, unspecified, uncomplicated; G47.00 Insomnia, unspecified; F17.210 Nicotine dependence, cigarettes, uncomplicated; R74.8 Abnormal levels of other serum enzymes; F12.90 Cannabis use, unspecified, uncomplicated; F11.90 Opioid use, unspecified, uncomplicated; E66.9 Obesity, unspecified; R59.1 Generalized enlarged lymph nodes; Z79.01 Long term (current) use of anticoagulants; Z82.49 Family history of ischemic heart disease and other diseases of the circulatory system; Z79.899 Other long term (current) drug therapy; Z71.6 Tobacco abuse counseling; Z68.32 Body mass index [BMI] 32.0-32.9, adult
CPT/HCPCS: 36245; 36569; 36600; 71045; 71250; 71275; 72100; 76700; 76770; 76937; 80048; 80053; 80074; 80202; 80307; 81001; 81003; 82043; 82550; 82570; 82595; 82805; 82962; 83605; 83615; 83735; 83880; 84100; 84145; 84155; 84156; 84166; 84300; 84311; 84484; 84540; 85007; 85025; 85027; 85379; 85610; 85730; 86480; 86900; 86901; 87015; 87040; 87070; 87075; 87081; 87101; 87116; 87205; 87206; 87252; 87389; 87449; 87522; 87556; 87899; 88112; 88305; 89051; 93005; 93306; 93308; 93970; 94640; 94660; 94668; 97162; 97530; 99285; G0238; J0456; J0696; J1100; J1170; J1644; J1885; J1940; J2060; J2250; J2274; J2405; J2543; J2704; J3010; J3370; J3490; J7030; J7040; J7050; J7060; Q9967; 36415-L1; 36415-TC; J7613; Z7610